=== PATIENT | female | born 1950 | race Caucasian/White ===

== ENCOUNTER 2024-08-14 10:14 | Outpatient (CLI) | payer MEDICARE, SELFPAY ==
--- NOTE | ~2024-08-14 | XR_ITS ---
XR chest 2V 08/14/2024 10:55 Indication: Cough and shortness of breath Procedure: 2 view chest Comparison: No prior studies for comparison. Findings: Lingular infiltrates may represent atelectasis or pneumonia. Heart size normal. Right lung clear. No pleural effusion, edema or pneumothorax. Impression: 1: Lingular infiltrates, atelectasis versus pneumonia. Reviewed, dictated and finalized at location A. Impression: 1: Lingular infiltrates, atelectasis versus pneumonia.
--- OUTSIDE RECORDS SUMMARY | 2024-08-14 11:28 | XMS_ITS | Data Portability ---
Author Organization [facility] Address [address] [place] [address] Care Team Providers Care Loader Operator/Ground Leader Name Role Phone MOUNIKA REGALADO Primary Care Provider RAFAELA Barnes Geochemical Manager Assessment Encounter Date Assessment Date Assessment LastModified by Organization Details LastModified Time 07/30/2023 07/30/2023 Chest x-ray echocardiogram PFT Lexiscan Cardiolite. Blood work for biochemical management of disease processes and medications continue with her medications as ordered follow-up 4 months [place] [id number] Not available 08/03/2023 21:51:55 11/26/2023 11/26/2023 Z-Gilberto for URI other medications we will continue workup for dyspnea so far negative and she is improved actually back to baseline and does not want to pursue anything else she will let me know if things change follow up with me in 4 months [email or web address] Not available 11/26/2023 21:00:07 01/08/2024 01/08/2024 screenings checklist immunizations discussed ordered where appropriate for the patient and patient agreeable all questions answered she will follow up with me at her regularly scheduled visit [email or web address] Not available 01/19/2024 14:31:35 03/31/2024 03/31/2024 blood work has been ordered healthy lifestyle care instructions for obesity continue current therapy her diagnosis discussed all questions have been answered she will follow up with me in 4 months she states that mammogram colonoscopy is up-to-date we will have to try to retrieve the report [email or web address] Not available 04/04/2024 22:54:38 06/23/2024 06/23/2024 obtain chest x-ray healthy lifestyle care instructions to help shed a few lb may otherwise continue current therapy and follow up in 4 months [email or web address] Not available 06/28/2024 20:28:57 Plan of Treatment Reminders Order Date Submit Date Provider Last Modified By Organization Details Last Modified Time Details Appointments ANY 15 2024 09:30A Jana Regalado MD Not available Not available Not available Lab CBC w/ auto diff 2023 024 [facility], [address], [address], [place], [address], 06/10/2024 17:58:47 CMP, serum or plasma 2023 024 [facility], [address], [address], [place], [address], 06/10/2024 17:58:45 lipid panel, serum 2023 024 [facility], [address], [address], [place], [address], 06/10/2024 17:58:44 lipid panel, serum 2023 024 [facility], [address], [place], [address], 08/14/2023 16:14:39 CMP, serum or plasma 2023 024 [facility], [address], [address], [place], [address], 08/14/2023 16:14:38 CBC w/ auto diff 2023 024 [facility], [address], [address], [place], [address], 08/14/2023 16:14:38 Referral None recorded. Procedures lexiscan cardiolit e stress test (PROC) 2023 024 [facility], [address], [address], [place], [address], 08/05/2023 14:11:35 Surgeries None recorded. Imaging XR, chest 2024 025 [facility] (Imaging), [address], [address], 07/21/2024 11:21:53 MAMMO, screening , bilateral 2023 024 [facility] ([facility]), [address] [place], [address], 02/27/2024 10:17:44 bone density 2023 024 [facility] ([facility]), [address] [place], [address], 02/27/2024 10:24:29 XR, chest, 2 view 2023 024 [facility] ([facility]), [address] [place], [address], 08/14/2023 15:42:04 US, echocardi ogram 2023 024 [facility], [address], [facility] [facility] [address], [place], [address], 08/21/2023 11:57:07 PFT, complete 2023 024 [facility], [address], [facility] [address], [place], [address], 08/28/2023 10:36:47 Medication Orders Zithromax Z-Gilberto 250 mg tablet 2023 024 [id number], [address] , [place], [place], [id number], 01/08/2024 10:19:38 Patient TargetsNo targets recorded. Patient Instructions Encounter Date Encounter Id Patient Instructions Last Modified By Organization Details Last Modified Time 01/08/2024 [id number] Medicare [facility] Preventive Checklist [email or web address] Not available 01/08/2024 11:02:46 03/31/2024 [id number] A healthy lifestyle: care instructions [email or web address] Not available 03/31/2024 13:15:47 06/23/2024 [id number] A healthy lifestyle: care instructions [email or web address] Not available 06/23/2024 15:22:33 Reason for Referral None Reported. Results Created Date Observation Date Name Description Value Unit Range Abnormal Flag Note LastModifiedBy Organization Detail LastModifiedTime 06/10/19 25 06/10/2024 LIPID PANEL , [place] cholesterol, total 127 mg/dL <200 normal Not Available [address], [address], 06/10/2024 17:58:44 06/10/19 25 06/10/2024 LIPID PANEL , [place] HDL cholesterol 51 mg/dL > or = 50 normal Not Available [address], [address], 06/10/2024 17:58:44 06/10/19 25 06/10/2024 LIPID PANEL , [place] triglyceride s 107 mg/dL <150 normal Not Available [address], [address], 06/10/2024 17:58:44 06/10/19 25 06/10/2024 LIPID PANEL , [place] LDL-choleste rol 57 mg/dL _(stephanie c) normal Refer ence range : <100 Yumiko able range <100 mg/dL for prima ry preve ntion ; <70 mg/dL for patie nts with CHD or diabe tic patie nts with > or = 2 CHD risk facto rs. LDL-C is now calcu lated using the Christina n-Hop kins calcu latkaterin n, which is a valid ated novel coral lorenzo r accur acy than the Fried maria ines equat ion in the estim ation of LDL-C . Christina morel SS et al. YUSUF. 2013; 310(1 9): 2061- 2068 (http ://ed ucati on.Logan garcia Joroto. com/f aq/FA Q164) Not Available [address], [address], 06/10/2024 17:58:44 06/10/19 25 06/10/2024 LIPID PANEL , [place] chol/HDLC ratio 2.5 (calc ) <5.0 normal Not Available [address], [address], 06/10/2024 17:58:44 06/10/19 25 06/10/2024 LIPID PANEL , [place] non HDL cholesterol 76 mg/dL _(stephanie c) <130 normal For patie nts with diabe seema plus 1 major ASCVD risk facto r, treat ing to a non-H DL-C goal of <100 mg/dL (LDL- C of <70 mg/dL ) is consi larond a thera peaishai c optio n. Not Available [address], [address], 06/10/2024 17:58:44 06/10/19 25 06/10/2024 COMPR EHENS MARK METAB OLIC PANEL glucose 145 mg/dL 65-139 high Non-f astin g refer ence inter josefa Not Available [address], [address], 06/10/2024 17:58:45 06/10/19 25 06/10/2024 COMPR EHENS MARK METAB OLIC PANEL urea nitrogen (BUN) 10 mg/dL 7-25 normal Not Available [address], [address], 06/10/2024 17:58:45 06/10/19 25 06/10/2024 COMPR EHENS MARK METAB OLIC PANEL creatinine 0.80 mg/dL 0.60-1 .00 normal Not Available [address], [address], 06/10/2024 17:58:45 06/10/19 25 06/10/2024 COMPR EHENS MARK METAB OLIC PANEL eGFR 78 mL/mi n/1.7 3m2 > or = 60 normal Not Available [address], [place], [address], 06/10/2024 17:58:45 06/10/19 25 06/10/2024 COMPR EHENS MARK METAB OLIC PANEL BUN/creatini ne ratio SEE NOTE: (calc ) 6-22 Not Repor jake: BUN and Creat inine are withi n refer ence range . Not Available [address], [place], [address], 06/10/2024 17:58:45 06/10/19 25 06/10/2024 COMPR EHENS MARK METAB OLIC PANEL sodium 136 mmol/ L 135-14 6 normal Not Available [address], [place], [address], 06/10/2024 17:58:45 06/10/19 25 06/10/2024 COMPR EHENS MARK METAB OLIC PANEL potassium 4.4 mmol/ L 3.5-5. 3 normal Not Available [address], [place], [address], 06/10/2024 17:58:45 06/10/19 25 06/10/2024 COMPR EHENS MARK METAB OLIC PANEL chloride 103 mmol/ L 98-110 normal Not Available [address], [address], 06/10/2024 17:58:45 06/10/19 25 06/10/2024 COMPR EHENS MARK METAB OLIC PANEL carbon dioxide 26 mmol/ L 20-32 normal Not Available [address], [address], 06/10/2024 17:58:45 06/10/19 25 06/10/2024 COMPR EHENS MARK METAB OLIC PANEL calcium 10.0 mg/dL 8.6-10 .4 normal Not Available [address], [address], 06/10/2024 17:58:45 06/10/19 25 06/10/2024 COMPR EHENS MARK METAB OLIC PANEL protein, total 6.8 g/dL 6.1-8. 1 normal Not Available [address], [address], 06/10/2024 17:58:45 06/10/19 25 06/10/2024 COMPR EHENS MARK METAB OLIC PANEL albumin 4.5 g/dL 3.6-5. 1 normal Not Available [address], [address], 06/10/2024 17:58:45 06/10/19 25 06/10/2024 COMPR EHENS MARK METAB OLIC PANEL globulin 2.3 g/dL_ (calc ) 1.9-3. 7 normal Not Available [address], [address], 06/10/2024 17:58:45 06/10/19 25 06/10/2024 COMPR EHENS MARK METAB OLIC PANEL albumin/glob ulin ratio 2.0 (calc ) 1.0-2. 5 normal Not Available [address], [address], 06/10/2024 17:58:45 06/10/19 25 06/10/2024 COMPR EHENS MARK METAB OLIC PANEL bilirubin, total 0.5 mg/dL 0.2-1. 2 normal Not Available [address], [address], 06/10/2024 17:58:45 06/10/19 25 06/10/2024 COMPR EHENS MARK METAB OLIC PANEL alkaline phosphatase 61 U/L 37-153 normal Not Available [address] [address] [place], [address], 06/10/2024 17:58:45 06/10/19 25 06/10/2024 COMPR EHENS MARK METAB OLIC PANEL AST 24 U/L 10-35 normal Not Available [address], [address], 06/10/2024 17:58:45 06/10/19 25 06/10/2024 COMPR EHENS MARK METAB OLIC PANEL ALT 20 U/L 6-29 normal Not Available [address], [address], 06/10/2024 17:58:45 06/10/19 25 06/10/2024 CBC (INCL UDES DIFF/ PLT) white blood cell count 6.2 thous and/u L 3.8-10 .8 normal Not Available [address], [address], 06/10/2024 17:58:47 06/10/19 25 06/10/2024 CBC (INCL UDES DIFF/ PLT) red blood cell count 4.72 braeden on/uL 3.80-5 .10 normal Not Available [address], [address], 06/10/2024 17:58:47 06/10/19 25 06/10/2024 CBC (INCL UDES DIFF/ PLT) hemoglobin 14.1 g/dL 11.7-1 5.5 normal Not Available [address], [address], 06/10/2024 17:58:47 06/10/19 25 06/10/2024 CBC (INCL UDES DIFF/ PLT) hematocrit 44.0 % 35.0-4 5.0 normal Not Available [address], [address], 06/10/2024 17:58:47 06/10/19 25 06/10/2024 CBC (INCL UDES DIFF/ PLT) MCV 93.2 fL 80.0-1 00.0 normal Not Available [address], [address], 06/10/2024 17:58:47 06/10/19 25 06/10/2024 CBC (INCL UDES DIFF/ PLT) MCH 29.9 pg 27.0-3 3.0 normal Not Available [address], [address], 06/10/2024 17:58:47 06/10/19 25 06/10/2024 CBC (INCL UDES DIFF/ PLT) MCHC 32.0 g/dL 32.0-3 6.0 normal For adult s, a sligh t decre ase in the calcu lated MCHC value (in the range of 30 to 32 g/dL) is most likel y not clini lyndsey signi fican t; zahraa er, it shoul d be inter prete d with cauti on in corre latio n with other red cell hermes eters and the patie nt's clini stephanie condi tion. Not Available [address], [address], 06/10/2024 17:58:47 06/10/1906/10/2024 CBC (INCL UDES DIFF/ PLT) RDW 11.9 % 11.0-1 5.0 normal Not Available [address], [address], 06/10/2024 17:58:47 06/10/19 25 06/10/2024 CBC (INCL UDES DIFF/ PLT) platelet count 219 thous and/u L 140-40 0 normal Not Available [address], [address], 06/10/2024 17:58:47 06/10/19 25 06/10/2024 CBC (INCL UDES DIFF/ PLT) MPV 10.7 fL 7.5-12 .5 normal Not Available [address], [address], 06/10/2024 17:58:47 06/10/19 25 06/10/2024 CBC (INCL UDES DIFF/ PLT) absolute neutrophils 4061 cells /uL 1500-7 800 normal Not Available [address], [address], 06/10/2024 17:58:47 06/10/19 25 06/10/2024 CBC (INCL UDES DIFF/ PLT) absolute lymphocytes 1432 cells /uL 850-39 00 normal Not Available [address], [address], 06/10/2024 17:58:47 06/10/19 25 06/10/2024 CBC (INCL UDES DIFF/ PLT) absolute monocytes 546 cells /uL 200-95 0 normal Not Available [address], [address], 06/10/2024 17:58:47 06/10/19 25 06/10/2024 CBC (INCL UDES DIFF/ PLT) absolute eosinophils 112 cells /uL 15-500 normal Not Available [address], [address], 06/10/2024 17:58:47 06/10/19 25 06/10/2024 CBC (INCL UDES DIFF/ PLT) absolute basophils 50 cells /uL 0-200 normal Not Available [address], [address], 06/10/2024 17:58:47 06/10/19 25 06/10/2024 CBC (INCL UDES DIFF/ PLT) neutrophils 65.5 % normal Not Available [address], [address], 06/10/2024 17:58:47 06/10/19 25 06/10/2024 CBC (INCL UDES DIFF/ PLT) lymphocytes 23.1 % normal Not Available [address], [address], 06/10/2024 17:58:47 06/10/19 25 06/10/2024 CBC (INCL UDES DIFF/ PLT) monocytes 8.8 % normal Not Available [facility] [address], [address], 06/10/2024 17:58:47 06/10/19 25 06/10/2024 CBC (INCL UDES DIFF/ PLT) eosinophils 1.8 % normal Not Available [facility] [address], [address], 06/10/2024 17:58:47 06/10/19 25 06/10/2024 CBC (INCL UDES DIFF/ PLT) basophils 0.8 % normal Not Available [facility] [address], [address], 06/10/2024 17:58:47 06/16/1906/16/2024 HEMOG LOBIN A1C hemoglobin A1C 5.8 %_of_ total _HGB <5.7 high For someo ne witho ut known diabe seema, a hemog lobin A1c value betwe en 5.7% and 6.4% is consi stent with predi abete s and shoul d be confi rmed with a follo w-up test. For someo ne with known diabe seema, a value <7% indic ates that their diabe seema is well contr olled . A1c targe ts shoul d be indiv idual ized based on durat ion of diabe seema, age, comor bid condi tions , and other consi derat ions. This assay resul t is consi stent with an incre ased risk of diabe seema. Curre ntly, no conse nsus exist s regar ding use of hemog lobin A1c for diagn osis of diabe seema for child kamlesh. Not Available [facility] [address], [place], [address], 06/16/2024 22:54:08 08/14/19 24 08/14/2023 XR, chest , 2 view No observ ation record ed. [email or web address] [address] [place], [address], 08/21/2023 09:21:17 08/21/19 24 08/20/2023 US, echoc ardio gram No observ ation record ed. [facility] [address], [place], [address], 08/26/2023 16:44:05 08/28/19 24 08/28/2023 PFT, compl ete No observ ation record ed. [facility] [address], [place], [address], 09/04/2023 13:22:12 09/23/19 24 09/23/2023 NM, myoca rdial perfu eva scan No observ ation record ed. [facility] [address], [place], [address], 09/27/2023 15:38:28 01/08/20 24 06/23/2021 colon oscop y proce dure (PROC ) No observ ation record ed. Not Available 2023 10:58:43 02/27/2002/27/2024 MAMMO , scree delilah, bilat eral No observ ation record ed. [facility] [address] [place], [address], 03/11/2024 13:04:48 02/27/20 24 02/27/2024 bone densi ty No observ ation record ed. [facility] [address] [place], [address], 03/11/2024 13:04:49 Result Notes None recorded. Problems Name Problem SNOMED Code Status Onset Date Resolution Date Notes Provider Name and Address Organization Details Recorded Time Dyspnea on exertion 52715598 Active 2023 HEIKE Gibbs, [place] - [facility] 4 14:12:33 Urinary tract infectious disease 29286478 Active 2023 Dallas Figueroa [place] null, [place] [facility] 4 11:42:53 Obesity 493077555 Active 2023 Dallas Figueroa [place], [place] [facility] 4 11:42:53 Rheumatoid arthritis 52593947 Active 2023 HEIKE [place], [place] [facility] 4 11:42:57 Gastroesophage al reflux disease without esophagitis 939878107 Active 2023 Dallas Figueroa [place], [place] [facility] 4 11:42:58 Anxiety 96825816 Active 2023 Dallas Figueroa [place], [place] [facility] 4 11:43:00 Hyperlipidemia 74410851 Active 2023 HEIKE Gibbs, [place] [facility] 4 11:43:09 Problem Notes None recorded. Procedures Surgical History Date Name Laterality Status Provider Name and Address Organization Details Recorded Time Knee Surgery completed Madeline Bueno MA [facility] 07/30/2023 11:25:01 Tonsillectomy completed Madeline Bueno MA [facility] 07/30/2023 11:25:10 partial hysterectomy completed Madeline Bueno MA [facility] 07/30/2023 11:25:28 Imaging Results Imaging Date Name Status LastModified by Organization Details LastModified Time 08/14/2023 XR, chest, 2 view completed [facility] [address] [place], [address], 08/21/2023 09:21:17 08/20/2023 US, echocardiogram completed [facility] [address], [place], [address], 08/26/2023 16:44:05 08/28/2023 PFT, complete completed [facility] [address], [place], [address], 09/04/2023 13:22:12 09/23/2023 NM, myocardial perfusion scan completed [facility] [address], [place], [address], 09/27/2023 15:38:28 06/23/2021 colonoscopy procedure (PROC) completed [facility] Information not available 01/08/2024 10:58:43 02/27/2024 MAMMO, screening, bilateral completed [facility] [address] [place], [address], 03/11/2024 13:04:48 02/27/2024 bone density completed [facility] [address] [place], [address], 03/11/2024 13:04:49 Procedure Notes None recorded. Medical Equipment None Reported. Allergies No known drug allergies Medications Name Sig Start Date Stop Date Status Note LastModified by Organization Details LastModified Time carisoprodol 350 mg tablet TAKE 2 TABLETS BY MOUTH EVERY DAY AT BEDTIME 07/29 completed Not Available Not Available Not Available tizanidine 2 mg tablet TAKE 1 TO 2 TABLETS BY MOUTH DAILY AT BEDTIME active Not Available Not Available No t Available atorvastatin 10 mg tablet TAKE 1 TABLET BY MOUTH EVERY DAY 2024 active Not Available Not Available Not Avai lable azithromycin 250 mg tablet TAKE 2 TABLETS BY MOUTH FOR 1 DAY THEN TAKE 1 TABLET BY MOUTH DAILY FOR 4 DAYS 01/07 completed Not Available Not Available Not Available mycophenolat e mofetil 500 mg tablet Take 2 tablets twice a day by oral route for 90 days. active Not Available Not Available No t Available lansoprazole 15 mg capsule,sandra yed release Take 1 capsule every day by oral route. active Not Available Not Available No t Available sertraline 25 mg tablet TAKE 1 TABLET BY MOUTH EVERY DAY 2024 active Not Available Not Available Not Avai lable hydroxychlor oquine 200 mg tablet TAKE 2 TABLETS BY MOUTH ONCE DAILY active Not Available Not Available No t Available Vitamin D3 25 mcg (1,000 unit) capsule Take 1 capsule every day by oral route. active Not Available Not Available No t Available bupropion HCl XL 300 mg 24 hr tablet, extended release Take 1 tablet every day by oral route for 30 days. active Not Available Not Available No t Available melatonin 5 mg capsule Take 1 capsule every day by oral route at bedtime. active Not Available Not Available No t Available Caltrate active Not Available Not Avai lable Not Available Fish Oil 1,200 mg (144 mg-216 mg) capsule Take 1 capsule every day by oral route. 06/23 completed Not Available Not Available Not Available Vitals Date Recorded Body weight Body mass index (BMI) Body height Heart rate Oxygen saturation Oxygen saturation in Arterial blood by Pulse oximetry Systolic blood pressure Diastolic blood pressure Provider Name and Address Organization Details Last Updated DateTime 4 55483.6 7 g 28.9 kg/m2 152.4 cm 80 /min 99 % 99 % 111 mm[Hg] 72 mm[Hg] Madeline Bueno MA [facility] 4 11:28:16 Date Recorded Body height Body mass index (BMI) Body weight Heart rate Oxygen saturation Oxygen saturation in Arterial blood by Pulse oximetry Systolic blood pressure Diastolic blood pressure Provider Name and Address Organization Details Last Updated DateTime 4 152.4 cm 29.1 kg/m2 37880.2 6 g 81 /min 99 % 99 % 128 mm[Hg] 62 mm[Hg] Candice Ramos MA [facility] 4 10:37:28 Date Recorded Body height Body mass index (BMI) Body weight Heart rate Oxygen saturation Oxygen saturation in Arterial blood by Pulse oximetry Systolic blood pressure Diastolic blood pressure Provider Name and Address Organization Details Last Updated DateTime 4 152.4 cm 29.8 kg/m2 38991.9 1 g 79 /min 97 % 97 % 124 mm[Hg] 70 mm[Hg] Madeline Bueno MA [facility] 4 10:13:37 Date Recorded Pain severity - 0-10 verbal numeric rating [Score] - Reported Provider Name and Address Organization Details Last Updated DateTime 01/08/2024 0 [facility] 01/08/2024 10:18:37 Date Recorded Body height Body mass index (BMI) Body weight Heart rate Oxygen saturation Oxygen saturation in Arterial blood by Pulse oximetry Systolic blood pressure Diastolic blood pressure Provider Name and Address Organization Details Last Updated DateTime 4 149.86 cm 31.6 kg/m2 97997.2 1 g 86 /min 99 % 99 % 128 mm[Hg] 78 mm[Hg] Rachel Muhammad MA [facility] 4 10:22:14 Date Recorded Body height Body mass index (BMI) Body weight Heart rate Oxygen saturation Oxygen saturation in Arterial blood by Pulse oximetry Systolic blood pressure Diastolic blood pressure Provider Name and Address Organization Details Last Updated DateTime 5 149.86 cm 30.7 kg/m2 85255.0 4 g 77 /min 97 % 97 % 104 mm[Hg] 68 mm[Hg] June Rivas HEIKE [facility] 5 10:25:47 Social History Question Answer Notes LastModified by Organizat ion Details LastModified Time Tobacco Smoking Status Former Smoker Quit about 30 years ago - didn't smoke regularly, only when nervous Alesha Yan benny [facility] 01/08/2024 10:24:02 Do You Have An Advance Directive? Yes Information not available 07/30/2023 What Is Your Level Of Alcohol Consumption? None Information not available 07/30/2023 Are You Blind Or Do You Have Difficulty Seeing? No Information not available 07/30/2023 What Is Your Level Of Caffeine Consumption? Moderate 1 Cup Of Coffee & 1 Diet Pepsi Daily Information not available 01/08/2024 In The 14 Days Before Symptom Onset, Have You Had Close Contact With A Laboratory-confir med COVID-19 While That Case Was Ill? No Information not available 11/26/2023 In The 14 Days Before Symptom Onset, Have You Had Close Contact With A Person Who Is Under Investigation For COVID-19 While That Person Was Ill? No Information not available 11/26/2023 Have You Been To An Area Known To Be High Risk For COVID-19? No Information not available 11/26/2023 Are You Currently Employed? No Information not available 11/26/2023 Are You Deaf Or Do You Have Serious Difficulty Hearing? No Information not available 07/30/2023 What Type Of Diet Are You Following? REGULAR Information not available 07/30/2023 What Is The Highest Grade Or Level Of School You Have Completed Or The Highest Degree You Have Received? [id number] Information not available 01/08/2024 Are There Any Guns Present In Your Home? No Information not available 07/30/2023 In The Past 7 Days, How Much Pain Have You [place]? None Information not available 01/08/2024 In General, Would You Say You Health Is: Good Information not available 01/08/2024 How Would You Describe The Condition Of Your Mouth And Teeth- Including False Teeth Or Dentures? Good Information not available 01/08/2024 Each Night, How Many Hours Of Sleep Do You Get? 5 Information no t available 01/08/2024 Has Anyone Ever Told You That You Snore? Yes Information not available 01/08/2024 In The Past 7 Days, How Often Have You [place] Sleepy In The Daytime? Always Information not available 01/08/2024 # Alcohol Drinks Per Week 0 Information not available 01/08/2024 What Was The Date Of Your Most Recent Tobacco Screening? 06/23/2024 Information not available 06/23/2024 What Is Your Relationship Status? Information not available 07/30/2023 Do You Use Your Seat Belt Or Car Seat Routinely? Yes Information not available 07/30/2023 Do You Have Smoke And Carbon Monoxide Detectors In Your Home? Yes Information not available 07/30/2023 Do You Feel Stressed (tense, Restless, Nervous, Or Anxious, Or Unable To Sleep At Night)? [id number] Information not available 01/08/2024 Do You Use Any Illicit Or Recreational Drugs? No Information not available 07/30/2023 Do You Use Sunscreen Routinely? No Information not available 07/30/2023 Has Tobacco Cessation Counseling Been Provided? No Information not available 06/23/2024 Do You Or Have You Ever Used Any Other Forms Of Tobacco Or Nicotine? No Information not available 07/30/2023 Sex: Female Functional Status Question Answer Note LastModified by Organization D etails LastModified Time Are you able to care for yourself? Yes Information n ot available 07/30/2023 What is your exercise level? None Information not available 07/30/2023 Mental Status None recorded. Family History Relationship Description Onset Age of this Age Resolved Age Notes LastModified by Organization Details LastModified Time Father Myocardial infarction bandersonma Not available 04/2024 11:23:52 Paternal Uncle Myocardial infarction bandersonma Not available 04/2024 11:23:52 Medical History Condition Response Coronary Artery Disease N Other N High Blood Pressure N Atrial Fibrillation N Thyroid Problems N Kidney or Bladder Problems N Depression N COPD N Blood Clots N GI Problems N Have you had a mammogram in the last yea r? N Skin Problems N Anemia N Heart Attack ([place]) N Anxiety Disorder N Diabetes N Muscle, Joint, or Bone Problems N Seizures/Epilepsy N Have you had a colonoscopy in the last 1 0 years? Y Acid Reflux (GERD) Y Cancer N Stroke N Asthma N Allergies N Have you had a PSA blood test in the las t year? N High Cholesterol Y Hepatitis N Liver Disease N Headaches N Osteoporosis N Heart Failure N Gynecological History Statement/Question Response If Post Menopausal, Age at Menopause 53 Obstetrics History GPAL:G 1 P 1 0 0 1 Type Value Full Term 1 Living 1 Total 1 Immunizations Vaccine Type Date Status Note Provider Nam e and Address Organization Details Recorded Time Influenza, high-dose, quadrivalent, PF 3 completed A[place]ha [place], [place] - [facility] 01/08/2024 10:12:24 Influenza, high-dose, quadrivalent, PF 9 [place] [facility] 01/08/2024 10:12:24 Influenza, adjuvanted, quadrivalent, PF 2 [place] [facility] 01/08/2024 10:12:24 Influenza, adjuvanted, quadrivalent, PF 1 [place] [facility] 01/08/2024 10:12:24 COVID-19, mRNA, LNP-S, PF, 30 mcg/0.3 mL dose 1 completed Ales[place] [facility] 01/08/2024 10:12:24 COVID-19, mRNA, LNP-S, PF, 30 mcg/0.3 mL dose 1 completed [place] [facility] 01/08/2024 10:12:24 COVID-19, mRNA, LNP-S, PF, 30 mcg/0.3 mL dose 1 completed [place] [facility] 01/08/2024 10:12:24 pneumococcal polysaccharide PPV23 2 completed [place] [facility] 01/08/2024 10:12:24 Pneumococcal conjugate PCV 13 1 completed [place] [facility] 01/08/2024 10:12:24 Influenza, split virus, quadrivalent, PF 0 completed [place] [facility] 01/08/2024 10:12:24 Past Encounters Encounter ID Performer Location Encounter Start Date Encounter Closed Date Diagnosis/Indication Diagnosis SNOMED-CT Code Diagnosis ICD10 Code Diagnosis Note [id number] Mounika Regalado MD [facility] (Adult Med) [address] [place] [address] [phone] 0 07/30/2023 11:02:13 07/30/2023 12:08:40 Dyspnea on exertion 68180836 R06.09 Hyperlipidemia 16818297 E78.5 Rheumatoid arthritis 698 08668 M06.9 Anxiety 97986068 F41.9 Gastroesop hageal reflux disease without esophagitis 626718644 K21.9 Chronic low back pain 27 8145480 M54.50 [id number] MD [facility] (Adult Med) [address] [place] [address] [phone] 11/26/2023 10:16:39 11/26/2023 11:43:52 Urinary tract infectious disease 10424749 N39.0 Hyperlipidemia 93711581 E78.5 Rheumatoid arthritis 698 34943 M06.9 Gastroesop hageal reflux disease without esophagitis 023973349 K21.9 Anxiety 07319339 F41.9 [id number] Mounika Regalado MD [facility] (Adult Med) [address] [place] [address] [phone] 0 01/08/2024 10:01:49 01/08/2024 10:51:40 Adult health examination 901456225 Z00.00 Health Risk Assessment collected and reviewed Screening mammography 24 505312 Z12.31 Postmenopausal state 764 16243 Z78.0 [id number] Mounika Regalado MD [facility] (Adult Med) [address] [place] [address] [phone] 0 03/31/2024 10:14:54 03/31/2024 11:44:28 Body mass index 30+ - obesity 537047097 Z68.31 BMI 31.6 Obesity 106666648 E66.9 Hyperlipidemia 74421350 E78.5 Rheumatoid arthritis 698 84060 M06.9 Gastroesop hageal reflux disease without esophagitis 520702558 K21.9 Long-term drug therapy 605319406 Z79.891 Anxiety 54438860 F41.9 [id number] Mounika Regalado MD [facility] (Adult Med) [address] [place] [address] [phone] 0 06/23/2024 10:08:52 06/23/2024 10:56:00 Body mass index 30+ - obesity 753546008 Z68.31 BMI 31.6 Obesity 491359291 E66.9 Cough 31590327 R05.9 Hyperlipidemia 74734281 E78.5 Gastroesop hageal reflux disease without esophagitis 576182117 K21.9 Rheumatoid arthritis 698 60010 M06.9 Anxiety 40467259 F41.9 Health Concerns Section Related Observation LastModified by Organization Detai ls LastModified Time None Recorded Concern Status LastModified by Organization Details LastModified Time None Recorded Advance Directives Directive Y: Payers Encounter Date Sequence Insurance Name Policy Number Policy Romeo Covered Member ID Romeo Member ID Guarantor Name 07/30/2023 1 [facility] (MEDICARE REPLACEMENT/A DVANTAGE - HMO) [id number] Daisy Joseph [id number] Daisy Joseph 11/26/2023 1 [facility] (MEDICARE REPLACEMENT/A DVANTAGE - HMO) [id number] Daisy Joseph [id number] Daisy Bowmanmmitt 01/08/2024 1 [facility] (MEDICARE REPLACEMENT/A DVANTAGE - HMO) [id number] Daisy Zaman Brummitt [id number] Daisy Bowmanmmitt 03/31/2024 1 [facility] (MEDICARE REPLACEMENT/A DVANTAGE - HMO) [id number] Daisy Zaman Brummitt [id number] Daisy Bowmanmmitt 06/23/2024 1 [facility] (MEDICARE REPLACEMENT/A DVANTAGE - HMO) [id number] Daisy Zaman Brummitt [id number] Daisy Bowmanmmrogers Notes Date Note Type Note Provider Name and Address Organization Details Recorded Time 07/30/2023 text/html Has been having some [place] for several months without any chest pain. Hyperlipidemia taking atorvastatin try to watch a low-fat diet. Rheumatoid arthritis has been stable on current therapy anxiety doing well on sertraline without SI or HI. GERD has been doing okay no nausea no vomiting her chronic back pain has been stable Mounika Regalado MD Attn: [address] [place], [address], [facility] 08/03/2023 21:52:14 11/26/2023 text/html for follow up of medical problems her breathing is better PFTs nothing specific echo good test negative Hyperlipidemia taking atorvastatin try to watch a low-fat diet. Rheumatoid arthritis has been stable on current therapy anxiety doing well on sertraline without SI or HI. GERD has been doing okay no nausea no vomiting her chronic back pain has been stable. She has had upper respiratory infection for a week or 2 getting worse Mounika Regalado MD Attn: [address] [facility], [place], [address], [facility] 11/26/2023 21:00:25 01/08/2024 text/html MAW 2Reported bypatient.Diet and Nutrition:healthy diet Fracture Risk:no history of fractures; no sudden unexplained fractures Concentration and Memory:no decreased concentrating ability; no memory lapses or loss; does not forget words Speech/Motor difficulties:no speech difficulties; no difficulty expressing formulated concepts; no difficulty with fine manipulative tasks; no difficulty writing/copying; no slowed reaction time; does not knock things over when trying to pick them up Hearing:no loss of hearing Vision:worse both distance and near(contacts, dry eyes) Activities of Daily Living:able to bathe with limited or no assistance; able to contol urination and bowels; able to dress with limited or no assistance; able to feed self with limited or no assistance; able to get out of chair or bed with limited or no assistance; able to groom with limited or no assistance; able to toilet with limited or no assistance Instrumental Activities of Daily Living:able to do house work with limited or no assistance; able to grocery shop with limited or no assistance; able to manage medications with limited or no assistance; able to manage money with limited or no assistance; able to prepare meals with limited or no assistance; able to use the phone with limited or no assistance Falls Risk Assessment:no frequent falls while walking; no fall in the past year; no fall since last visit; no dizziness/vertigo Home Safety:reviewed sun protection; no unsafe bennie hazzards; no unsafe stairs; working smoke/CO detectors; practicing 'safer sex'; no fire arms; has hand bars in the bathroom/shower; good lighting in the home Mounika Regalado MD Attn: [address] [place], [address], [facility] 01/19/2024 14:31:48 03/31/2024 text/html GERD no nausea n o vomiting anxiety doing fine on current medical regimen without any side effects rheumatoid arthritis stable she is not having any side effects from medication GERD she is managing that conservatively Mounika Regalado MD Attn: [address] [place], [address], [facility] 04/04/2024 22:54:58 06/23/2024 text/html rheumatoid arthr itis seems to be doing fine GERD no nausea or vomiting anxiety has been stable she has had no problems trying to follow low-fat diets had a cough for about 6 weeks that has been nonproductive without fever chills has been no hemoptysis or chest pain Mounika Regalado MD Attn: [address] [place], [address], [facility] 06/28/2024 20:29:18 OBGyn Episode No OBEpisode recorded.
--- OUTSIDE RECORDS SUMMARY | 2024-08-14 11:28 | XMS_ITS | CONTINUITY OF CARE DOCUMENT ---
Author Name zenonemelina, keren Address Unknown Organization [facility] Address [address] [place] [address] Phone [phone] Care Team Providers Care Stone Rigger Name Role Phone Mike CASTRO, Eli Unavailable MOUNIKA AVILA MD Unavailable PROBLEMS Condition Status Date Provider Notes Dyspnea on exertion active Josiah Bueno Palpitations active Ricki Arceo INSURANCE PROVIDERS Payer name Policy type / Coverage type [place] [employer] ID AARP MEDICARE ADVANTAGE HMO-POS HMO [id number] TREATMENT PLAN Date Name Stress Regadenoson Complete Echo HISTORY OF PROCEDURES Procedure Date Procedure Name Provider Procedure Notes S tatus FVC / MVV - 36544 Eli Mckeon MD co mpleted BLOOD COUNT HEMOGLOBIN Eli Mckeon MD completed FRC - 82375 Eli Mckeon MD complete d SpO2 w/o 6min walk/titration Eli Mckeon MD completed DLCO - 36762 Eli Mckeon MD complet ed Event Monitor Eli joseph
--- OUTSIDE RECORDS SUMMARY | 2024-08-14 11:28 | XMS_ITS | Data Portability ---
Author Organization [place] - [facility] [employer], Main Office Address [address] [place] [address] Assessment Encounter Date Assessment Date Assessment LastModified by Organization Details LastModified Time 11/16/2022 11/16/2022 Get the recommended adrenal CT upper lower endoscopy results have been reviewed follow-up with me in 6-8 week [email or web address] Not available 11/17/2022 21:52:37 03/04/2023 03/04/2023 X-ray the neck she will see me in 4 months will continue other therapy [email or web address] Not available 03/04/2023 14:08:43 Plan of Treatment Reminders Order Date Submit Date Provider Last Modified By Organization Details Last Modified Time Details Appointments None recorded. Lab None recorded. Referral None recorded. Procedures None recorded. Surgeries None recorded. Imaging XR, cervical spine 2022 023 [facility] ([facility]), [address] [place], [address], 09:20:20 Medication Orders None recorded. Patient TargetsNo targets recorded. Patient InstructionsNo instructions recorded. Reason for Referral None Reported. Results Created Date Observation Date Name Description Value Unit Range Abnormal Flag Note LastModifiedBy Organization Detail LastModifiedTime 01/16/20 22 01/15/2022 COMPR EHENS MARK METAB OLIC PANEL carbon dioxide 23 mmol/ L 22-30 Not Available [facility] (Lab) [address] [place], [address], 01/15/2022 20:24:46 01/16/20 22 01/15/2022 COMPR EHENS MARK METAB OLIC PANEL sodium 138 mmol/ L 137-14 5 Not Available [facility] (Lab) [address] [place], [address], 01/15/2022 20:24:46 01/16/20 22 01/15/2022 COMPR EHENS MARK METAB OLIC PANEL potassium 4.8 mmol/ L 3.5-5. 1 Not Available [facility] (Lab) [address] [place], [address], 01/15/2022 20:24:46 01/16/20 22 01/15/2022 COMPR EHENS MARK METAB OLIC PANEL chloride 105 mmol/ L 98-107 Not Available [facility] (Lab) [address] [facility] [place] [place], [address], 01/15/2022 20:24:46 01/16/20 22 01/15/2022 COMPR EHENS MARK METAB OLIC PANEL anion gap 14.8 mmol/ L 14-22 Not Available [facility] (Lab) [address] [place], [address], 01/15/2022 20:24:46 01/16/20 22 01/15/2022 COMPR EHENS MARK METAB OLIC PANEL glucose 97 mg/dL 70-99 Not Available [facility] (Lab) [address] [place], [address], 01/15/2022 20:24:46 01/16/20 22 01/15/2022 COMPR EHENS MARK METAB OLIC PANEL BUN 18 mg/dL 8-19 Not Available [facility] (Lab) [address] [place], [address], 01/15/2022 20:24:46 01/16/20 22 01/15/2022 COMPR EHENS MARK METAB OLIC PANEL creatinine 0.80 mg/dL 0.66-1 .25 Not Available [facility] (Lab) [address] [place], [address], 01/15/2022 20:24:46 01/16/20 22 01/15/2022 COMPR EHENS MARK METAB OLIC PANEL GFR >60 Refer ence Range : [place] ge GFR Healt hy Adult : >60 mL/mi n/1.7 3 m2 Chron ic Kidne y Disea se: 15-60 mL/mi n/1.7 3 m2 Kidne y Failu re: <15/m L/min /1.73 m2 www.n iddk. nih.g ov The MDRD study equat ion has not been valid ated in child kamlesh <18 years of age; pregn ant women ; the elder ly >85 years of age; or in some racia l or ethni c subgr oups, such as Hispa nics. Outsi de the valid ated hermes eters , estim ated GFR is less accur ate, requi ring clini stephanie judgm ent on a case- by-ca se basis . Clini stephanie inter preta tion for other races and ages must be made by the clini jojo. The MDRD study equat ion has not been valid ated for the evalu ation of serum creat inine relat ed to nutri mami l statu s or medic ation usage . For perso ns <18 years of age, a pedia tric GFR calcu lator is avail able on the [facility] websi te: https :[email or web address] [email or web address] [email or web address] michael/pr ofess ional s/kdo qi/gf r_cal culat or Not Available [facility] (Lab) [address] [place], [address], 01/15/2022 20:24:46 01/16/20 22 01/15/2022 COMPR EHENS MARK METAB OLIC PANEL alkaline phosphatase 72 U/L 38-126 Not Available [facility] (Lab) [address] [place], [address], 01/15/2022 20:24:46 01/16/20 22 01/15/2022 COMPR EHENS MARK METAB OLIC PANEL alanine aminotransfe rase 28 U/L 0-35 Not Available [facility] (Lab) [address] [place], [address], 01/15/2022 20:24:46 01/16/20 22 01/15/2022 COMPR EHENS MARK METAB OLIC PANEL aspartate aminotransfe rase 35 U/L 15-37 Not Available [facility] (Lab) [address] [place], [address], 01/15/2022 20:24:46 01/16/20 22 01/15/2022 COMPR EHENS MARK METAB OLIC PANEL bilirubin, total 0.40 mg/dL 0.20-1 .30 Not Available [facility] (Lab) [address] [place], [address], 01/15/2022 20:24:46 01/16/20 22 01/15/2022 COMPR EHENS MARK METAB OLIC PANEL calcium 9.8 mg/dL 8.4-10 .2 Not Available [facility] (Lab) [address] [place], [address], 01/15/2022 20:24:46 01/16/20 22 01/15/2022 COMPR EHENS MARK METAB OLIC PANEL total protein 7.5 g/dL 6.3-8. 2 Not Available [facility] (Lab) [address] [place], [address], 01/15/2022 20:24:46 01/16/20 22 01/15/2022 COMPR EHENS MARK METAB OLIC PANEL albumin 4.5 g/dL 3.0-4. 4 high Not Available [facility] (Lab) [address] [place], [address], 01/15/2022 20:24:46 01/16/20 22 01/15/2022 COMPR EHENS MARK METAB OLIC PANEL globulin 3.0 g/dL 2.6-4. 2 Not Available [facility] (Lab) [address] [place], [address], 01/15/2022 20:24:46 01/16/20 22 01/15/2022 COMPR EHENS MARK METAB OLIC PANEL A/G ratio 1.5 ratio 1.0-2. 0 Not Available [facility] (Lab) [address] [place], [address], 01/15/2022 20:24:46 01/16/20 22 01/15/2022 LIPID PANEL LDL cholesterol, calculated 123 mg/dL 0-130 NIH MIKI NSUS REPOR T RECOM MENDA TIONS FOR LDL: ADULT CHILD LOW RISK <130 <110 (OPTI MAL LDL) <100 ----- BORDE RLINE : 130-1 59 ----- HIGH RISK: >160 >130 A TRIGL YCERI DE RESUL T >400 INVAL IDATE S THE CALCU LATIO N FOR LDL FRACT IONAT ION - THE LDL RESUL T WILL NOT BE REPOR BABITA. Not Available [facility] (Lab) [address] [place], [address], 01/15/2022 18:19:41 01/16/20 22 01/15/2022 LIPID PANEL cholesterol 197 mg/dL 140-19 9 NIH MIKI NSUS RECOM MENDA TION FOR CHRISTOPHER STERO L: ADULT CHILD LOW RISK: <200 <170 BORDE RLINE : <200- 239 ----- HIGH RISK: >240 >200 Not Available [facility] (Lab) [address] [place], [address], 01/15/2022 18:19:41 01/16/20 22 01/15/2022 LIPID PANEL triglyceride s 134 mg/dL 0-150 NIH MIKI NSUS REPOR T RECOM MENDA TION FOR TRIGL YCERI NORMA: ADULT CHILD LOW RISK: <150 ----- BODER LINE: 150-1 99 ----- HIGH RISK: >200 ----- Not Available [facility] (Lab) [address] [place], [address], 01/15/2022 18:19:41 01/16/20 22 01/15/2022 LIPID PANEL HDL cholesterol 47 mg/dL 40- Not Available [facility] (Lab) [address] [place], [address], 01/15/2022 18:19:41 01/16/20 22 01/15/2022 CBC/C OMPLE TE BLD COUNT W/DIF F lymphocytes 33.3 % 16.0-4 7.0 Not Available [facility] (Lab) [address] [place], [address], 01/15/2022 17:04:14 01/16/20 22 01/15/2022 CBC/C OMPLE TE BLD COUNT W/DIF F white blood cells 5.8 x10'3 /uL 4.2-10 .8 Not Available [facility] (Lab) [address] [place], [address], 01/15/2022 17:04:14 01/16/20 22 01/15/2022 CBC/C OMPLE TE BLD COUNT W/DIF F red blood cells 4.64 x10'6 /uL 3.80-5 .20 Not Available [facility] (Lab) [address] [place], [address], 01/15/2022 17:04:14 01/16/20 22 01/15/2022 CBC/C OMPLE TE BLD COUNT W/DIF F hemoglobin 14.1 g/dL 12.0-1 5.6 Not Available [facility] (Lab) [address] [place], [address], 01/15/2022 17:04:14 01/16/20 22 01/15/2022 CBC/C OMPLE TE BLD COUNT W/DIF F hematocrit 44.0 % 35.7-4 5.7 Not Available [facility] (Lab) [address] [place], [address], 01/15/2022 17:04:14 01/16/20 22 01/15/2022 CBC/C OMPLE TE BLD COUNT W/DIF F mean red cell volume 94.8 fL 82.0-9 9.0 Not Available [facility] (Lab) [address] [place], [address], 01/15/2022 17:04:14 01/16/20 22 01/15/2022 CBC/C OMPLE TE BLD COUNT W/DIF F mean red cell hemoglobin 30.4 pg 27.0-3 3.0 Not Available [facility] (Lab) [address] [place], [address], 01/15/2022 17:04:14 01/16/20 22 01/15/2022 CBC/C OMPLE TE BLD COUNT W/DIF F mean RBC HGB concentratio n 32.0 g/dL 31.0-3 6.0 Not Available [facility] (Lab) [address] [place], [address], 01/15/2022 17:04:14 01/16/20 22 01/15/2022 CBC/C OMPLE TE BLD COUNT W/DIF F red cell distribution width 12.9 % 11.8-1 5.5 Not Available [facility] (Lab) [address] [place], [address], 01/15/2022 17:04:14 01/16/20 22 01/15/2022 CBC/C OMPLE TE BLD COUNT W/DIF F platelets 224 x10'3 /uL 150-40 0 Not Available [facility] (Lab) [address] [place], [address], 01/15/2022 17:04:14 01/16/20 22 01/15/2022 CBC/C OMPLE TE BLD COUNT W/DIF F mean platelet volume 10.2 fL 9.0-12 .4 Not Available [facility] (Lab) [address] [place], [address], 01/15/2022 17:04:14 01/16/20 22 01/15/2022 CBC/C OMPLE TE BLD COUNT W/DIF F neutrophils 54.5 % 39.0-7 2.0 Not Available [facility] (Lab) [address] [place], [address], 01/15/2022 17:04:14 01/16/20 22 01/15/2022 CBC/C OMPLE TE BLD COUNT W/DIF F monocytes 10.2 % 5.0-12 .0 Not Available [facility] (Lab) [address] [place], [address], 01/15/2022 17:04:14 01/16/20 22 01/15/2022 CBC/C OMPLE TE BLD COUNT W/DIF F neutrophils, absolute count 3.14 x10'3 /uL 1.5-8. 0 Not Available [facility] (Lab) [address] [place], [address], 01/15/2022 17:04:14 01/16/20 22 01/15/2022 CBC/C OMPLE TE BLD COUNT W/DIF F eosinophils 1.4 % 1.0-7. 0 Not Available [facility] (Lab) [address] [place], [address], 01/15/2022 17:04:14 01/16/20 22 01/15/2022 CBC/C OMPLE TE BLD COUNT W/DIF F basophils 0.3 % 0.0-2. 0 Not Available [facility] (Lab) [address] [place], [address], 01/15/2022 17:04:14 01/16/20 22 01/15/2022 CBC/C OMPLE TE BLD COUNT W/DIF F immature granulocytes 0.3 % 0.00-0 .50 Not Available [facility] (Lab) [address] [place], [address], 01/15/2022 17:04:14 01/16/20 22 01/15/2022 CBC/C OMPLE TE BLD COUNT W/DIF F lymphocytes, absolute count 1.92 x10'3 /uL 1.07-3 .43 Not Available [facility] (Lab) [address] [facility] [place] [place], [address], 01/15/2022 17:04:14 01/16/20 22 01/15/2022 CBC/C OMPLE TE BLD COUNT W/DIF F monocytes, absolute count 0.59 x10'3 /uL 0.29-0 .99 Not Available [facility] (Lab) [address] [place], [address], 01/15/2022 17:04:14 01/16/20 22 01/15/2022 CBC/C OMPLE TE BLD COUNT W/DIF F eosinophils, absolute count 0.08 x10'3 /uL 0.02-0 .53 Not Available [facility] (Lab) [address] [place], [address], 01/15/2022 17:04:14 01/16/20 22 01/15/2022 CBC/C OMPLE TE BLD COUNT W/DIF F basophils, absolute count 0.02 x10'3 /uL 0.01-0 .08 Not Available [facility] (Lab) [address] [place], [address], 01/15/2022 17:04:14 01/16/20 22 01/15/2022 CBC/C OMPLE TE BLD COUNT W/DIF F immature granulocytes ,absolute 0.02 x10'3 /uL 0.00-0 .05 Not Available [facility] (Lab) [address] [place], [address], 01/15/2022 17:04:14 01/16/20 22 01/15/2022 CBC/C OMPLE TE BLD COUNT W/DIF F nucleated red blood cells 0.0 % -0 Not Available [facility] (Lab) [address] [place], [address], 01/15/2022 17:04:14 01/16/20 22 01/15/2022 CBC/C OMPLE TE BLD COUNT W/DIF F NRBC# 0.00 x10'3 /uL Not Available [facility] (Lab) [address] [place], [address], 01/15/2022 17:04:14 11/13/19 23 11/12/2022 BUN/B LOOD UREA NITRO GEN BUN 13 mg/dL 8-19 Not Available [facility] (Lab) [address] [place], [address], 11/12/2022 10:23:50 11/13/19 23 11/12/2022 CREAT ININE creatinine 0.76 mg/dL 0.66-1 .25 Not Available [facility] (Lab) [address] [place], [address], 11/12/2022 10:23:53 11/13/19 23 11/12/2022 CREAT ININE GFR >60 Refer ence Range : [place] ge GFR Healt hy Adult : >60 mL/mi n/1.7 3 m2 Chron ic Kidne y Disea se: 15-60 mL/mi n/1.7 3 m2 Kidne y Failu re: <15/m L/min /1.73 m2 www.n iddk. nih.g ov The MDRD study equat ion has not been valid ated in child kamlesh <18 years of age; pregn ant women ; the elder ly >85 years of age; or in some racia l or ethni c subgr oups, such as Hispa nics. Outsi de the valid ated hermes eters , estim ated GFR is less accur ate, requi ring clini stephanie judgm ent on a case- by-ca se basis . Clini stephanie inter preta tion for other races and ages must be made by the clini jojo. The MDRD study equat ion has not been valid ated for the evalu ation of serum creat inine relat ed to nutri mami l statu s or medic ation usage . For perso ns <18 years of age, a pedia tric GFR calcu lator is avail able on the F websi te: https :[email or web address] w.[email or web address] [email or web address] rg/pr ofess ional s/kdo qi/gf r_cal culat or Not Available [facility] (Lab) [address] [place], [address], 11/12/2022 10:23:53 08/14/19 24 08/14/2023 CBC/C OMPLE TE BLD COUNT W/DIF F white blood cells 5.9 x10'3 /uL 4.2-10 .8 Not Available [facility] (Lab) [address] [place], [address], 08/14/2023 15:47:55 08/14/19 24 08/14/2023 CBC/C OMPLE TE BLD COUNT W/DIF F red blood cells 4.65 x10'6 /uL 3.80-5 .20 Not Available [facility] (Lab) [address] [place], [address], 08/14/2023 15:47:55 08/14/19 24 08/14/2023 CBC/C OMPLE TE BLD COUNT W/DIF F hemoglobin 14.4 g/dL 12.0-1 5.6 Not Available [facility] (Lab) [address] [place], [address], 08/14/2023 15:47:55 08/14/19 24 08/14/2023 CBC/C OMPLE TE BLD COUNT W/DIF F hematocrit 43.7 % 35.7-4 5.7 Not Available [facility] (Lab) [address] [place], [address], 08/14/2023 15:47:55 08/14/19 24 08/14/2023 CBC/C OMPLE TE BLD COUNT W/DIF F mean red cell volume 94.0 fL 82.0-9 9.0 Not Available [facility] (Lab) [address] [place], [address], 08/14/2023 15:47:55 08/14/19 24 08/14/2023 CBC/C OMPLE TE BLD COUNT W/DIF F mean red cell hemoglobin 31.0 pg 27.0-3 3.0 Not Available [facility] (Lab) [address] [place], [address], 08/14/2023 15:47:55 08/14/19 24 08/14/2023 CBC/C OMPLE TE BLD COUNT W/DIF F mean RBC HGB concentratio n 33.0 g/dL 31.0-3 6.0 Not Available [facility] (Lab) [address] [place], [address], 08/14/2023 15:47:55 08/14/19 24 08/14/2023 CBC/C OMPLE TE BLD COUNT W/DIF F red cell distribution width 12.8 % 11.8-1 5.5 Not Available [facility] (Lab) [address] [place], [address], 08/14/2023 15:47:55 08/14/19 24 08/14/2023 CBC/C OMPLE TE BLD COUNT W/DIF F platelets 186 x10'3 /uL 150-40 0 Not Available [facility] (Lab) [address] [place], [address], 08/14/2023 15:47:55 08/14/19 24 08/14/2023 CBC/C OMPLE TE BLD COUNT W/DIF F mean platelet volume 10.0 fL 9.0-12 .4 Not Available [facility] (Lab) [address] [place], [address], 08/14/2023 15:47:55 08/14/19 24 08/14/2023 CBC/C OMPLE TE BLD COUNT W/DIF F neutrophils 64.2 % 39.0-7 2.0 Not Available [facility] (Lab) [address] [place], [address], 08/14/2023 15:47:55 08/14/19 24 08/14/2023 CBC/C OMPLE TE BLD COUNT W/DIF F lymphocytes 24.9 % 16.0-4 7.0 Not Available [facility] (Lab) [address] [place], [address], 08/14/2023 15:47:55 08/14/19 24 08/14/2023 CBC/C OMPLE TE BLD COUNT W/DIF F monocytes 8.4 % 5.0-12 .0 Not Available [facility] (Lab) [address] [place], [address], 08/14/2023 15:47:55 08/14/19 24 08/14/2023 CBC/C OMPLE TE BLD COUNT W/DIF F eosinophils 1.5 % 1.0-7. 0 Not Available [facility] (Lab) [address] [place], [address], 08/14/2023 15:47:55 08/14/19 24 08/14/2023 CBC/C OMPLE TE BLD COUNT W/DIF F basophils 0.7 % 0.0-2. 0 Not Available [facility] (Lab) [address] [place], [address], 08/14/2023 15:47:55 08/14/19 24 08/14/2023 CBC/C OMPLE TE BLD COUNT W/DIF F immature granulocytes 0.3 % 0.00-0 .50 Not Available [facility] (Lab) [address] [place], [address], 08/14/2023 15:47:55 08/14/19 24 08/14/2023 CBC/C OMPLE TE BLD COUNT W/DIF F neutrophils, absolute count 3.81 x10'3 /uL 1.5-8. 0 Not Available [facility] (Lab) [address] [place], [address], 08/14/2023 15:47:55 08/14/19 24 08/14/2023 CBC/C OMPLE TE BLD COUNT W/DIF F lymphocytes, absolute count 1.48 x10'3 /uL 1.07-3 .43 Not Available [facility] (Lab) [address] [place], [address], 08/14/2023 15:47:55 08/14/19 24 08/14/2023 CBC/C OMPLE TE BLD COUNT W/DIF F monocytes, absolute count 0.50 x10'3 /uL 0.29-0 .99 Not Available [facility] (Lab) [address] [place], [address], 08/14/2023 15:47:55 08/14/19 24 08/14/2023 CBC/C OMPLE TE BLD COUNT W/DIF F eosinophils, absolute count 0.09 x10'3 /uL 0.02-0 .53 Not Available [facility] (Lab) [address] [place], [address], 08/14/2023 15:47:55 08/14/19 24 08/14/2023 CBC/C OMPLE TE BLD COUNT W/DIF F basophils, absolute count 0.04 x10'3 /uL 0.01-0 .08 Not Available [facility] (Lab) [address] [place], [address], 08/14/2023 15:47:55 08/14/19 24 08/14/2023 CBC/C OMPLE TE BLD COUNT W/DIF F immature granulocytes ,absolute 0.02 x10'3 /uL 0.00-0 .05 Not Available [facility] (Lab) [address] [place], [address], 08/14/2023 15:47:55 08/14/19 24 08/14/2023 CBC/C OMPLE TE BLD COUNT W/DIF F nucleated red blood cells 0.0 % -0 Not Available [facility] (Lab) [address] [place], [address], 08/14/2023 15:47:55 08/14/19 24 08/14/2023 CBC/C OMPLE TE BLD COUNT W/DIF F NRBC# 0.00 x10'3 /uL Not Available [facility] (Lab) [address] [place], [address], 08/14/2023 15:47:55 08/14/19 24 08/14/2023 LIPID PANEL cholesterol 151 mg/dL 140-19 9 NIH MIKI NSUS RECOM MENDA TION FOR CHRISTOPHER STERO L: ADULT CHILD LOW RISK: <200 <170 BORDE RLINE : <200- 239 ----- HIGH RISK: >240 >200 Not Available [facility] (Lab) [address] [place], [address], 08/14/2023 16:06:16 08/14/19 24 08/14/2023 LIPID PANEL triglyceride s 132 mg/dL 0-150 NIH MIKI NSUS REPOR T RECOM MENDA TION FOR TRIGL YCERI NORMA: ADULT CHILD LOW RISK: <150 ----- BODER LINE: 150-1 99 ----- HIGH RISK: >200 ----- Not Available [facility] (Lab) [address] [place], [address], 08/14/2023 16:06:16 08/14/19 24 08/14/2023 LIPID PANEL HDL cholesterol 53 mg/dL 40- Not Available [facility] (Lab) [address] [place], [address], 08/14/2023 16:06:16 08/14/19 24 08/14/2023 LIPID PANEL LDL cholesterol, calculated 72 mg/dL 0-130 NIH MIKI NSUS REPOR T RECOM MENDA TIONS FOR LDL: ADULT CHILD LOW RISK <130 <110 (OPTI MAL LDL) <100 ----- BORDE RLINE : 130-1 59 ----- HIGH RISK: >160 >130 A TRIGL YCERI DE RESUL T >400 INVAL IDATE S THE CALCU LATIO N FOR LDL FRACT IONAT ION - THE LDL RESUL T WILL NOT BE REPOR BABITA. Not Available [facility] (Lab) [address] [place], [address], 08/14/2023 16:06:16 08/14/19 24 08/14/2023 COMPR EHENS MARK METAB OLIC PANEL sodium 139 mmol/ L 137-14 5 Not Available [facility] (Lab) [address] [place], [address], 08/14/2023 16:06:27 08/14/19 24 08/14/2023 COMPR EHENS MARK METAB OLIC PANEL potassium 4.2 mmol/ L 3.5-5. 1 Not Available [facility] (Lab) [address] [place], [address], 08/14/2023 16:06:27 08/14/19 24 08/14/2023 COMPR EHENS MARK METAB OLIC PANEL chloride 105 mmol/ L 98-107 Not Available [facility] (Lab) [address] [place], [address], 08/14/2023 16:06:27 08/14/19 24 08/14/2023 COMPR EHENS MARK METAB OLIC PANEL carbon dioxide 27 mmol/ L 22-30 Not Available [facility] (Lab) [address] [place], [address], 08/14/2023 16:06:27 08/14/19 24 08/14/2023 COMPR EHENS MARK METAB OLIC PANEL anion gap 11.2 mmol/ L 14-22 low Not Available [facility] (Lab) [address] [place], [address], 08/14/2023 16:06:27 08/14/19 24 08/14/2023 COMPR EHENS MARK METAB OLIC PANEL glucose 114 mg/dL 70-99 high Not Available [facility] (Lab) [address] [place], [address], 08/14/2023 16:06:27 08/14/19 24 08/14/2023 COMPR EHENS MARK METAB OLIC PANEL BUN 11 mg/dL 8-19 Not Available [facility] (Lab) [address] [place], [address], 08/14/2023 16:06:27 08/14/19 24 08/14/2023 COMPR EHENS MARK METAB OLIC PANEL creatinine 0.80 mg/dL 0.66-1 .25 Not Available [facility] (Lab) [address] [place], [address], 08/14/2023 16:06:27 08/14/19 24 08/14/2023 COMPR EHENS MARK METAB OLIC PANEL GFR >60 Refer ence Range : [place] ge GFR Healt hy Adult : >60 mL/mi n/1.7 3 m2 Chron ic Kidne y Disea se: 15-60 mL/mi n/1.7 3 m2 Kidne y Failu re: <15/m L/min /1.73 m2 www.n iddk. nih.g ov The MDRD study equat ion has not been valid ated in child kamlesh <18 years of age; pregn ant women ; the elder ly >85 years of age; or in some racia l or ethni c subgr oups, such as Hispa nics. Outsi de the valid ated hermes eters , estim ated GFR is less accur ate, requi ring clini stephanie judgm ent on a case- by-ca se basis . Clini stephanie inter preta tion for other races and ages must be made by the clini jojo. The MDRD study equat ion has not been valid ated for the evalu ation of serum creat inine relat ed to nutri mami l statu s or medic ation usage . For perso ns <18 years of age, a pedia tric GFR calcu latkrystin is avail able on the [facility] websi te: https :[email or web address] [email or web address] rg/pr ofess ional s/kdo qi/gf r_cal culat or Not Available [facility] (Lab) [address] [place], [address], 08/14/2023 16:06:27 08/14/19 24 08/14/2023 COMPR EHENS MARK METAB OLIC PANEL alkaline phosphatase 65 U/L 38-126 Not Available [facility] (Lab) [address] [place], [address], 08/14/2023 16:06:27 08/14/19 24 08/14/2023 COMPR EHENS MARK METAB OLIC PANEL alanine aminotransfe rase 33 U/L 0-35 Not Available [facility] (Lab) [address] [place], [address], 08/14/2023 16:06:27 08/14/19 24 08/14/2023 COMPR EHENS MARK METAB OLIC PANEL aspartate aminotransfe rase 40 U/L 15-37 high Not Available [facility] (Lab) [address] [place], [address], 08/14/2023 16:06:27 08/14/19 24 08/14/2023 COMPR EHENS MARK METAB OLIC PANEL bilirubin, total 0.60 mg/dL 0.20-1 .30 Not Available [facility] (Lab) [address] [place], [address], 08/14/2023 16:06:27 08/14/19 24 08/14/2023 COMPR EHENS MARK METAB OLIC PANEL calcium 10.0 mg/dL 8.4-10 .2 Not Available [facility] (Lab) [address] [place], [address], 08/14/2023 16:06:27 08/14/19 24 08/14/2023 COMPR EHENS MARK METAB OLIC PANEL total protein 7.6 g/dL 6.3-8. 2 Not Available [facility] (Lab) [address] [place], [address], 08/14/2023 16:06:27 08/14/19 24 08/14/2023 COMPR EHENS MARK METAB OLIC PANEL albumin 4.5 g/dL 3.0-4. 4 high Not Available [facility] (Lab) [address] [place], [address], 08/14/2023 16:06:27 08/14/19 24 08/14/2023 COMPR EHENS MARK METAB OLIC PANEL globulin 3.1 g/dL 2.6-4. 2 Not Available [facility] (Lab) [address] [place], [address], 08/14/2023 16:06:27 08/14/19 24 08/14/2023 COMPR EHENS MARK METAB OLIC PANEL A/G ratio 1.5 ratio 1.0-2. 0 Not Available [facility] (Lab) [address] [place], [address], 08/14/2023 16:06:27 08/24/19 22 06/23/2021 colon oscop y scree delilah (PROC ) No observ ation record ed. [id number] Cammy Guidry MD [address], [place], [address], 07/18/2022 06:20:03 11/13/19 23 11/12/2022 CT, abdom en + pelvi s, w/ contr ast [facility] [address] [facility] [place] [address] [facility] Name: DAISY GOODRICH Access ion #: [id number] Sex: F : 1950 3 Locati on: RAD Attend ing Physic josé: JUNIOR REGALADO Orderi ng Physic josé: JUNIOR REGALADO Exam Date: 023 9:49 AM Exam Name: CT ABDOME N PELVIS W Admitt ing Diagno sis(es ): RADIOL OGY REPORT - FINAL EXAM: CT ABDOME N PELVIS W HISTOR Y: Interm ittent abdomi nal pain unexpl ained loss of weight COMPAR GE: 2016 TECHNI QUE: The abdome n and pelvis are evalua babita with intrav enous contra st. Axial images are recons tructe d in the finn l, sagitt al, and axial planes and are review ed with medias tinal lung window s settin gs. This CT exam was perfor med using one or more of the follow ing dose reduct ion techni ques: Automa babita exposu re contro l, adjust ment of the mA and/or kV accord ing to patien t size, or use of iterat mark recons tructi on techni que. Dose: 100 ML Isovue 300 intrav enous Page 1 of 4 [facility] DAISY GOODRICH Access ion #: [id number] Sex: F : 1950 3 Exam Date: 023 9:49 AM Exam Name: CT ABDOME N PELVIS W Admitt ing Diagno sis(es ): Oral contra st:600 mL 2% weight per volume barium PO FINDIN GS: Lower chest: Finn ry artery calcif icatio ns. Mild thicke delilah of the mucosa of the distal esopha dejuan and GE juncti on consid er direct visual izatio n. Area of thicke theo mucosa of the body of the stomac h this could also be direct ly evalua babita at that time. CT ABDOME N: Liver: Fatty liver parenc hymal replac ement residu als, probab le 3 mm cyst, image [id number] . Gallbl adder and biliar y system : Cholec ystect aspen residu als. Spleen : Normal size Pancre as: No acute proces s Adrena l glands : Interv al increa se in size of the right adrena l mass now measur ing 29 mm demons tratin g an attenu ation value of [address] images . Kidney s and ureter s: No acute proces s. Bilate ral extrar enal pelvis phenom enon no defini te persis ting hydrou reter. Append ix: No eviden ce of append icitis Stomac h and bowel: Stool is noted throug hout the large colon Page 2 of 4 [facility] t Name: DAISY GOODRICH Access ion #: [id number] Sex: F : 1950 3 Exam Date: 023 9:49 AM Exam Name: CT ABDOME N PELVIS W Admitt ing Diagno sis(es ): Perito sydnee cavity : Unrema rkable Lymph nodes: No lympha denopa thy Vascul ature: No aneury sm Osseou s struct ures: Multil evel degene rative change s, no acute proces s Extra abdomi nal soft tissue s: Unrema rkable CT PELVIS : Reprod uctive : Hyster ectomy residu als Rectos igmoid : No acute proces s, stool Bladde r and distal ureter s: Unrema rkable , possib le vesico sarah. Extra pelvic soft tissue s: Unrema rkable IMPRES ZAIN: 1. Slight increa se in the size of the right adrena l mass previo usly noted demons trate fat densit y on the noncon trast image. That was in 2017. Recomm end a noncon trast CT examin ation of the abdome n only to evalua te the right adrena l gland. 2. Thicke theo mucosa of the stomac h and GE juncti on recomm end direct visual izatio n. 3. Hyster ectomy residu als, probab le vesico sarah. Page 3 of 4 [facility] t Name: DAISY GOODRICH Access ion #: [id number] Sex: F : 1950 3 Exam Date: 9:49 AM Exam Name: CT ABDOME N PELVIS W Admitt ing Diagno sis(es ): 4. There is a modera te volume of stool primar jamar within the right colon consid er consti pation 5. Other findin gs descri bed above. Create d and electr onical ly signed by: Dennis stern MD Signed Date: 11:53 AM (CT) Dictat ed by: Dennis stern MD DD: 11:53 AM (CT) DT: 11:53 AM (CT) Page 4 of 4 [email or web address] [facility] (Imaging) [address] [place], [address], 03/04/2023 11:04:28 12/18/19 23 12/17/2022 MAMMO , scree delilah, digit al, bilat eral [facility] [address] [place] [address] Patien t Name: DAISY GOODRICH Access ion #: [id number] Sex: F : 1950 6 Dictat ed By: Horacio Talley Attend ing Physic josé: JUNIOR REGALADO Orderi Physic josé: JUNIOR REGALADO Exam Date: 2022 09:56 AM Exam Name: MG SCRN BREAST DANIAL BILAT Admitt ing Diagno sis(es ): Compar ge: 1 Screen ing mammog jillian Techni que: Bilate ral CC and latera l images obtain ed are fulfil led with bilate ral tomosy nsthes is. Breast compos ition: Hetero genous ly dense. Digita l techni que per standa rd protoc ol Findin gs: No suspic ious mass or calcif icatio n is identi fied. No rosario ectura l distor tion is seen. There are no abnorm alitie s around the nipple areola r comple x. No adenop athy is apprec iated. . Conclu zain: No mammog raphic eviden ce of malign diana. Mammog raphic assess ment catego ry: BI-RAD S catego ry: 1 Negati ve Electr onical ly Signed by: Horacio Talley at 2022 12:38: 40 PM Page 1 [email or web address] [facility] ([facility]) [address] [place], [address], 03/04/2023 11:04:28 12/18/19 23 12/17/2022 CT, abdom en, w/o contr ast [facility] [address] [place] [address] Patien t Name: DAISY GOODRICH Access ion #: [id number] Sex: F : 1950 6 Dictat ed By: Horacio Talley Attend ing Physic josé: JUNIOR REGALADO Orderi Physic josé: JUNIOR REGALADO Exam Date: 2022 10:02 AM Exam Name: CT ABDOME N WO Admitt ing Diagno sis(es ): Exam: CT abdome n withou t contra st dated 023 10:02 AM Histor y: 72 years old Female with adrena l mass. Compar ge Study: None availa ble at time of dictat ion. Techni que: Multid etecto r spiral CT of the abdome n was perfor med from lung bases to iliac crest. Imagin g was perfor med withou t IV contra st. Axial, finn l and sagitt al multip lanar reform ats were obtain ed from the axial data set by the techno logist . Radiat ion Dose : CTDI volume is 14 mGy. Dose-l ength produc t is 550 mGy*cm Findin gs: Evalua tion of solid organs is limite d due to lack of intrav enous contra st use. Lung Bases: No acute or signif icant lung base findin g. Normal heart size. No pleura l or perica rdial effusi on. Liver: Hepati c steato sis. Gallbl adder and Biliar y Tree: Surgic ally absent . Spleen : Unrema rkable Pancre as: The pancre as is grossl y normal in appear ance. Adrena l Glands : Stable 3 cm right adrena l mass and compar e prior study dated 023. Hounsf ield units measur e approx imatel y 10 Hounsf ield units. Page 1 [facility] [address] [place] [address] Patien t Name: DAISY GOODRICH Access ion #: [id number] Sex: F : 1950 6 Dictat ed By: Horacio Talley Attend ing Physic josé: AUSTIN RONQUILLO [facility] Physic josé: JUNIOR REGALADO Exam Date: 2022 10:02 AM Exam Name: CT ABDOME N WO Admitt ing Diagno sis(es ): Kidney s: Kidney s are grossl y normal withou t calcul i or hydron ephros is. Visual ized Bowel: The stomac h is grossl y normal in appear ance. Small bowel and colon are normal in calibe r and distri bution . Ascite s: Absent Lympha denopa thy: No mesent alvaro, retrop eriton eal or peripo rtal lympha denopa thy. Abdomi nal Wall and Mesent jennifer: Unrema rkable . Vascul ature: The visual ized abdomi nal aorta is normal in size and calibe r. Evalua tion of abdomi nal and pelvic vessel s is limite d due to lack of intrav enous contra st. Muscul oskele alyssia: No aggres sive focal bony lesion s, acute fractu res or disloc ation. IMPRES ZAIN: 1. Probab le right adrena l adenom a. END IMPRES ZAIN: Electr onical ly Signed by: Horacio Talley at 2022 17:54: 37 PM Page 2 [email or web address] [facility] ([facility]) [address] [place], [address], 03/04/2023 11:04:29 03/04/20 23 03/04/2023 XR, cervi stephanie spine [facility] [address] [place] [address] [phone] Patien t Name: DAISY GOODRICH Access ion #: [id number] Sex: F : 1950 6 Dictat ed By: Eduardo Ward Attend ing Physic josé: JUNIOR REGALADO Orderi Physic josé: JUNIOR REGALADO Exam Date: 2022 09:39 AM Exam Name: XR C SPINE 4-5V Admitt ing Diagno sis(es ): INDICA TION: Trauma . TECHNI QUE6 views of the cervic al spine were obtain ed. COMPAR GE: None. FINDIN GS: The cervic al spine is visual ized from C1-C7. There is loss of the normal cervic al lordos is which can be positi onal. No fractu res or sublux ations are identi fied. Verteb ral body height s and disc spaces are well mainta ined. Alignm ent appear s unrema rkable . Prever tebral soft tissue s are within normal limits . Cervic othora cic juncti on is normal . IMPRES ZAIN: 1. No eviden ce for fractu re or sublux ation. Electr onical ly Signed by: Eduardo Ward at 2022 10:53: 49 AM Page 1 [email or web address] [facility] ([facility]) [address] [place], [address], 04/20/2023 20:55:32 08/14/19 24 08/14/2023 XR, chest , 2 view [facility] [address] [place] [address] [phone] Patien t Name: DASIY GOODRICH Access ion #: [id number] Sex: F : 1950 0 Dictat ed By: Horacio Talley Attend ing Physic josé: JUNIOR REGALADO Physic josé: JUNIOR REGALADO Exam Date: 2023 13:54 PM Exam Name: XR CHEST 2V Admitt ing Diagno sis(es ): XR CHEST 2V CLINIC AL HISTOR Y: dyspn ea on exerti on COMPAR GE: None TECHNI QUE: Fronta l and latera l view of the chest was obtain ed FINDIN GS: Lines and Tubes: None Lungs: No focal consol idatio n. Pleura : No effusi on. No pneumo thorax . Cardio medias tinal contou rs: Unrema rkable Bones: No acute osseou s abnorm ality. IMPRES ZAIN: No acute cardio pulmon lizabeth diseas e. Electr onical ly Signed by: Horacio Talley at 2023 14:38: 45 PM Page 1 [email or web address] [facility] ([facility]) [address] [place], [address], 11/18/2023 09:36:37 02/27/20 24 02/27/2024 scree delilah breas t danial, bilat [facility] [address] [address] Patien t Name: DAISY GOODRICH Access ion #: [id number] Sex: F : 1950 3 Dictat ed By: Junior ng Attend ing Physic josé: JUNIOR REGALADO Physic josé: JUNIOR REGALADO Exam Date: 2023 08:33 AM Exam Name: MG SCRN BREAST DANIAL BILAT Admitt ing Diagno sis(es ): PROCED URE: SCREEN ING MAMMOG JILLIAN WITH TOMOSY NTHESI S REASON FOR EXAM: screen ing mammog jillian. No person al histor y of breast cancer . Histor y of prior benign left breast surgic al biopsy . No family histor y of breast cancer . COMPAR GE: MG SCRN BREAST DANIAL BILAT on DOS: 3, MG SCRN BREAST DANIAL BILAT 3D on DOS: 1, SCREEN ING BREAST DANIAL, BILAT 3D on DOS: TECHNI QUE: Bilate ral CC and MLO views obtain ed. Images were obtain ed using a Digita l Tomosy nthesi s Unit. Standa rd 2D and 3D Tomosy nthesi s images were review ed. FINDIN GS: BREAST COMPOS ITION: A - The breast s are almost entire ly fatty. In the right breast , there are stable calcif icatio ns. No new or suspic ious findin g. In the left breast , there are stable calcif icatio ns. No new or suspic ious findin g. IMPRES ZAIN: No mammog raphic eviden ce of malign diana. RECOMM ENDATI ON: Recomm end annual mammog jillian. ASSESS MENT: BIRADS : 2 - Benign Page 1 [facility] [address] [place] [address] [phone] Patien t Name: DAISY GOODRICH [employer] ion #: [id number] Sex: F : 1950 3 Dictat ed By: Junior ng Attend ing Physic josé: [facility] Physic josé: JUNIOR REGALADO Exam Date: 2023 08:33 AM Exam Name: MG SCRN BREAST DANIAL BILAT Admitt ing Diagno sis(es ): Electr onical ly Signed by: Junior ng at 2023 07:13: 02 AM Page 2 [email or web address] [facility] ([facility]) [address] [place], [address], 03/04/2024 12:45:38 02/27/20 24 02/27/2024 DEXA, axial skele ton [facility] [address] [place] [address] Patien t Name: DAISY GOODRICH Access ion #: [id number] Sex: F : 1950 [facility] #: [id number] Dictat ed By: Junior ng Attend ing Physic josé: JUNIOR REGALADO [facility] Physic josé: JUNIOR REGALADO Exam Date: 2023 08:28 AM Exam Name: XR DEXA-H IPS PELVIS SPINE Admitt ing Diagno sis(es ): CLINIC AL HISTOR Y: postme nopaus al screen ing for osteop orosis . TECHNI QUE: The study was perfor med using a Dexcom Unit. Lumbar spine and proxim al femora l evalua tions were evalua babita in the fronta l projec tions. COMPAR GE: XR DEXA-H IPS PELVIS SPINE on DOS: 1 FINDIN GS: L1-L4 demons trates a bone minera l densit y of 1.345 g/cm2 with a T-scor e of 1.2, within normal limits . There has been a 2.1% interv al decrea se in bone minera l densit y in the lumbar spine compar ed to the prior exam. Left femora l neck evalua tion demons trates a bone minera l densit y of 0.935 g/cm2 with a T-scor e of -0.7, within normal limits . Right femora l neck evalua tion demons trates a bone minera l densit y of 0.845 g/cm2 with a T-scor e of -1.4, consis tent with osteop enia. There has been a 2.4% interv al decrea se in bone minera l densit y in the total mean proxim al femora compar ed to the prior exam. Estima babita total body fat is 50%. BMI is 30.1 IMPRES ZAIN: Bone minera l densit y is consis tent with osteop enia based on lowest t-scor e as detail ed above. Electr onical ly Signed by: Junior ng at 2023 07:19: 57 AM Page 1 [email or web address] [facility] ([facility]) [address] [place], [address], 03/04/2024 12:45:39 Result Notes None recorded. Problems Name Problem SNOMED Code Status Onset Date Resolution Date Notes Provider Name and Address Organization Details Recorded Time Abdominal pain 65314732 Active Not Available [facility] 3 11:43:55 Gastroeso phageal reflux disease without esophagit is 487163525 Active 2018 Not Available [facility] 3 11:43:55 Current tear of medial cartilage AND/OR meniscus of knee Active Not Available [facility] 3 11:43:55 Current tear of lateral cartilage AND/OR meniscus of knee Active Not Available [facility] 3 11:43:55 Hepatitis C antibody detected 959514343 Active Not Available [facility] 3 11:43:55 Depressiv e disorder 46966897 Active 2021 Not Available [facility] 3 11:43:55 Vertigo 712261489 Active Not Available [facility] 3 11:43:55 Anxiety 70913777 Active 2021 Not Available [facility] 3 11:43:55 Upper respirato ry infection 84563950 Active 2021 Not Available [facility] 3 11:43:55 Hyperlipi demia 98661293 Active 2021 Not Available [facility] 3 11:43:55 Polyp of colon 92264265 Active 2017 Not Available [facility] 3 11:43:55 Rheumatoi d arthritis 05231453 Active 2017 Not Available [facility] 3 11:43:55 Gastric polyp 82485898 Active 2021 endoscopy June 2021 Not Available [facility] 3 11:43:55 Cough 85982287 Active 2022 Not Available [facility] 3 11:43:55 CT of abdomen abnormal [id number] 017741 Active 2022 Not Available [facility] 3 11:43:55 Neck pain 59585543 Active 2022 Not Available [facility] 3 11:43:55 Problem Notes None recorded. Procedures Surgical History Date Name Laterality Status Provider Name and Address Organization Details Recorded Time 06/23/19 22 Colonoscopy completed Not Available [facility] 07/18/2022 06:00:07 12/27/19 19 Knee arthroscopy/surger y completed Not Available [facility] 07/18/2022 06:00:07 07/23/19 19 Cholecystectomy completed Not Available [facility] 07/18/2022 06:00:07 03/14/20 16 Colonoscopy completed Not Available [facility] 07/18/2022 06:00:07 Breast Biopsy completed Not Available [facility] 07/18/2022 06:00:07 Hysterectomy, Partial completed Not Available [facility] 07/18/2022 06:00:07 other completed Not Available [facility] 07/18/2022 06:00:07 Imaging Results Imaging Date Name Status LastModified by Organiz ation Details LastModified Time 06/23/2021 colonoscopy screening (PROC) completed [id number] Cammy Guidry MD [address] [facility] [address], [place], [address], 07/18/2022 06:20:03 11/12/2022 CT, abdomen + pelvis, w/ contrast completed [email or web address] [facility] ([facility]) [address] [place], [address], 03/04/2023 11:04:28 12/17/2022 MAMMO, screening, digital, bilateral completed [email or web address] [facility] ([facility]) [address] [place], [address], 03/04/2023 11:04:28 12/17/2022 CT, abdomen, w/o contrast completed [email or web address] [facility] ([facility]) [address] [place], [address], 03/04/2023 11:04:29 03/04/2023 XR, cervical spine completed [email or web address] [facility] ([facility]) [address] [place], [address], 04/20/2023 20:55:32 08/14/2023 XR, chest, 2 view [email or web address] [address] [place], [address], 11/18/2023 09:36:37 02/27/2024 screening breast danial, bilat [email or web address] ([facility]) [address] [place], [address], 03/04/2024 12:45:38 02/27/2024 DEXA, axial skeleton completed [address] (Imaging) [address] [place], [address], 03/04/2024 12:45:39 Procedure Notes None recorded. Medical Equipment None Reported. Allergies No known drug allergies Medications Name Sig Start Date Stop Date Status Note LastModified by Organization Details LastModified Time carisopro dol 350 mg tablet TAKE 2 TABLETS BY MOUTH EVERY DAY AT BEDTIME 03/04 completed Not Available Not Available Not Available bupropion HCl SR 150 mg tablet,12 hr sustained -release TK 1 T PO QD 06/25 completed Not Available Not Available Not Available prednison e 10 mg tablet take po as directed 01/12 completed Not Available Not Available Not Available tizanidin e 2 mg tablet TAKE 1 TO 2 TABLETS BY MOUTH EVERY DAY AT BEDTIME active Not Available Not Available No t Available atorvasta tin 10 mg tablet TAKE 1 TABLET BY MOUTH EVERY DAY active Not Available Not Available No t Available azithromy palmer 250 mg tablet TAKE 2 TABLETS BY MOUTH FOR 1 DAY THEN TAKE 1 TABLET BY MOUTH DAILY FOR 4 DAYS 11/16 completed Not Available Not Available Not Available tramadol 37.5 mg-acetam inophen 325 mg tablet 06/15 completed Not Available Not Available Not Available ofloxacin 0.3 % eye drops 09/14 completed Not Available Not Available Not Available hydrocodo ne 5 mg-acetam inophen 325 mg tablet 05/22 completed Not Available Not Available Not Available ondansetr on HCl 4 mg tablet Take 2 tablets 3 times a day by oral route as needed. 09/14 completed Not Available Not Available Not Available famotidin e 40 mg tablet 06/15 completed Not Available Not Available Not Available prednison e 20 mg tablet 01/23 completed Not Available Not Available Not Available aspirin 81 mg tablet,de layed release Take 1 tablet every day by oral route. 2020 active Not Available Not Available Not Avai lable tramadol 50 mg tablet 09/20 completed Not Available Not Available Not Available amoxicill in 500 mg tablet Take 1 tablet 3 times a day by oral route for 7 days. active Not Available Not Available No t Available mycopheno late mofetil 500 mg tablet Take 2 tablets twice a day by oral route for 90 days. active Not Available Not Available No t Available meloxicam 7.5 mg tablet 06/25 completed Not Available Not Available Not Available oxycodone -acetamin ophen 5 mg-325 mg tablet 09/19 completed Not Available Not Available Not Available methotrex ate sodium 2.5 mg tablet TK 6 TS PO 1 TIME Q 7 DAYS 01/12 completed Not Available Not Available Not Available dicyclomi ne 20 mg tablet 03/24 completed Not Available Not Available Not Available meclizine 25 mg tablet Take 1 tablet 3 times a day by oral route as needed. active Not Available Not Available No t Available cephalexi n 500 mg capsule TK 1 C PO TID FOR 10 DAYS 03/24 completed Not Available Not Available Not Available gabapenti n 300 mg capsule 11/14 completed Not Available Not Available Not Available sertralin e 25 mg tablet TAKE 1 TABLET BY MOUTH EVERY DAY 2022 active Not Available Not Available Not Avai lable Banophen 25 mg capsule TK 1 TO 2 CS PO D 05/22 completed Not Available Not Available Not Available folic acid 1 mg tablet 01/24 completed Not Available Not Available Not Available bisacodyl 5 mg tablet,de layed release 08/23 completed Not Available Not Available Not Available ergocalci ferol (vitamin D2) 1,250 mcg (50,000 unit) capsule TK 1 C PO 1 TIME WEEKLY 01/23 completed Not Available Not Available Not Available clobetaso l 0.05 % topical ointment 06/15 completed Not Available Not Available Not Available hydroxych loroquine 200 mg tablet TAKE 2 TABLETS BY MOUTH ONCE DAILY active Not Available Not Available No t Available polyethyl joe glycol 3350 17 gram/dose oral powder 11/14 completed Not Available Not Available Not Available levofloxa palmer 500 mg tablet Take 1 tablet every day by oral route for 10 days. 11/27 completed Not Available Not Available Not Available insulin syringe U-100 with needle 1 mL 30 gauge x 7/16 U UTD WEEKLY 09/14 completed Not Available Not Available Not Available methylpre dnisolone 4 mg tablets in a dose pack TK PO UTD 11/10 completed Not Available Not Available Not Available hydrocort isone 2.5 % topical ointment BEBO EXT AA ON FACE BID FOR 2-3 WEEKS 01/25 completed Not Available Not Available Not Available diazepam 5 mg tablet Take 0.5 tablets twice a day by oral route. 09/14 completed Not Available Not Available Not Available Vitamin D3 25 mcg (1,000 unit) capsule TK 1 CAPSULE PO DAILY active Not Available Not Available No t Available methotrex ate sodium (PF) 25 mg/mL injection solution 09/19 completed Not Available Not Available Not Available bupropion HCl XL 300 mg 24 hr tablet, extended release Take 1 tablet every day by oral route for 30 days. active Not Available Not Available No t Available duloxetin e 60 mg capsule,d elayed release 11/14 completed dizzines s Not Available Not Available Not Available lansopraz ole OTC 2020 active Not Available Not Available Not Avai lable peg 3350-elec trolytes 236 gram-22.7 4 gram-6.74 gram-5.86 gram solution 08/23 completed Not Available Not Available Not Available Q-PAP Extra Strength 500 mg tablet TK 2 TS PO TID PRN 01/30 completed Not Available Not Available Not Available Suprep Bowel Prep Kit 17.5 gram-3.13 gram-1.6 gram oral solution 11/14 completed Not Available Not Available Not Available Eucrisa 2 % topical ointment APPLY A THIN LAYER TO THE AFFECTED AREA(S) BY TOPICAL ROUTE 2 TIMES PER DAY 09/14 completed Not Available Not Available Not Available Afluria Qd 2020-21 (36 mos up)(PF)60 mcg (15 mcg x4)/0.5 mL IM syringe ADM 0.5ML IM UTD 01/24 completed Not Available Not Available Not Available Vitals Date Recorded Body mass index (BMI) Body height Heart rate Body temperature Body weight Systolic blood pressure Diastolic blood pressure Provider Name and Address Organization Details Last Updated DateTime 2 31.8 kg/m2 152.4 cm 72 /min 97.7 [degF] 74254.5 6 g 120 mm[Hg] 62 mm[Hg] Not Available [facility] 3 06:01:15 Date Recorded Body mass index (BMI) Body height Heart rate Body temperature Body weight Systolic blood pressure Diastolic blood pressure Provider Name and Address Organization Details Last Updated DateTime 2 31.1 kg/m2 152.4 cm 90 /min 96.6 [degF] 95169.1 9 g 124 mm[Hg] 70 mm[Hg] Not Available [facility] 3 06:01:15 Date Recorded Body mass index (BMI) Body height Heart rate Body temperature Body weight Systolic blood pressure Diastolic blood pressure Provider Name and Address Organization Details Last Updated DateTime 3 31.2 kg/m2 152.4 cm 81 /min 97.8 [degF] 00015.7 8 g 126 mm[Hg] 78 mm[Hg] Not Available [facility] 3 06:01:15 Date Recorded Body height Body mass index (BMI) Body weight Body temperature Heart rate Systolic blood pressure Diastolic blood pressure Provider Name and Address Organization Details Last Updated DateTime 3 152.4 cm 29.9 kg/m2 33182.6 3 g 97.8 [degF] 97 /min 118 mm[Hg] 80 mm[Hg] Leida Covington MA [facility] [employer] 3 10:28:35 Date Recorded Body height Body weight Body temperature Heart rate Oxygen saturation Oxygen saturation in Arterial blood by Pulse oximetry Systolic blood pressure Diastolic blood pressure Provider Name and Address Organization Details Last Updated DateTime 3 152.4 cm 69205.2 2 g 97.4 [degF] 82 /min 98 % 98 % 118 mm[Hg] 70 mm[Hg] Ashley Nath RN [facility] [employer] 3 10:00:06 Social History Question Answer Notes LastModified by Organization Details LastModified Time Tobacco Smoking Status Former Smoker quit age 29 Not Available [facility] 07/18/2022 05:56:44 Do You Have An Advance Directive? No [id number] Information not available 07/18/2022 What Is Your Level Of Alcohol Consumption? None [id number] Information not available 07/18/2022 Are You Blind Or Do You Have Difficulty Seeing? No [id number] Information not available 07/18/2022 What Is Your Level Of Caffeine Consumption? Moderate [id number] Information not available 07/18/2022 In The 14 Days Before Symptom Onset, Have You Had Close Contact With A Laboratory-confi rmed COVID-19 While That Case Was Ill? No [id number] Information not available 07/18/2022 In The 14 Days Before Symptom Onset, Have You Had Close Contact With A Person Who Is Under Investigation For COVID-19 While That Person Was Ill? No [id number] Information not available 07/18/2022 Are You Deaf Or Do You Have Serious Difficulty Hearing? No MIGRATION.0301 [id number] Information not available 07/18/2022 What Type Of Diet Are You Following? REGULAR MIGRATION.030 686249 Information not available 07/18/2022 What Is The Highest Grade Or Level Of School You Have Completed Or The Highest Degree You Have Received? 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 No MIGRATION.0301 715781 Information not available 07/18/2022 What Is The Fluoride Status Of Your Home? Unknown MIGRATION.0301 402022 Information not available 07/18/2022 When Did You Quit Smoking? 16+yearssincelastc igarette MIGRATION.0301 602426 Information not available 07/18/2022 Are There Any Guns Present In Your Home? No MIGRATION.0301 475738 Information not available 07/18/2022 Do You Use Insect Repellent Routinely? No MIGRATION.0301 420010 Information not available 07/18/2022 Where Do You Live? SingleLevelHouse MIGRATION.0301 442518 Information not available 07/18/2022 Do You Have A Medical Power Of Passenger Car Conductor? No MIGRATION.0301 410198 Information not available 07/18/2022 What Was The Date Of Your Most Recent Tobacco Screening? 03/04/2023 [email or web address] Information not available 03/04/2023 Do You Have Any Pets? No MIGRATION.0301 097222 Information not available 07/18/2022 What Is Your Relationship Status? MIGRATION.0301 023951 Information not available 07/18/2022 Do You Use Your Seat Belt Or Car Seat Routinely? Yes MIGRATION.0301 138103 Information not available 07/18/2022 Do You Have Smoke And Carbon Monoxide Detectors In Your Home? No MIGRATION.0301 013728 Information not available 07/18/2022 Are You Passively Exposed To Smoke? No MIGRATION.0301 156283 Information not available 07/18/2022 Are There Any Smokers In Your House? No MIGRATION.0301 722870 Information not available 07/18/2022 What Types Of Sporting Activities Do You Participate In? None MIGRATION.0301 452435 Information not available 07/18/2022 Do You Feel Stressed (tense, Restless, Nervous, Or Anxious, Or Unable To Sleep At Night)? [id number] MIGRATION.0301 133137 Information not available 07/18/2022 Do You Use Any Illicit Or Recreational Drugs? No MIGRATION.0301 421729 Information not available 07/18/2022 Do You Use Sunscreen Routinely? Yes MIGRATION.0301 563064 Information not available 07/18/2022 Has Tobacco Cessation Counseling Been Provided? No MIGRATION.0301 697410 Information not available 07/18/2022 Have You Recently Traveled Abroad? No MIGRATION.0301 021513 Information not available 07/18/2022 Do You Have Any Dietary Restrictions? No MIGRATION.0301 180472 Information not available 07/18/2022 Do You Or Have You Ever Used Any Other Forms Of Tobacco Or Nicotine? No MIGRATION.0301 055393 Information not available 07/18/2022 Sex: Female Functional Status Question Answer Note LastModified by Organizat ion Details LastModified Time Do you have difficulty walking or climbing stairs? No MIGRATION.8116655 026 Information not available 07/18/2022 Do you have transportation difficulties? No MIGRATION.8639434 026 Information not available 07/18/2022 Are you able to walk? YESWOREST MIGRATION.5904239 026 Information not available 07/18/2022 Do you have difficulty doing errands alone? No MIGRATION.6775119 026 Information not available 07/18/2022 Are you able to care for yourself? Yes MIGRATION.8346741 026 Information not available 07/18/2022 Do you have difficulty dressing or bathing? No MIGRATION.8612354 026 Information not available 07/18/2022 What is your exercise level? Occasional MIGRATION.5603941 026 Information not available 07/18/2022 Mental Status Question Answer Note LastModified by Organizat ion Details LastModified Time Do you have difficulty concentrating, remembering or making decisions? No MIGRATION.[id number] 6 Information not available 07/18/2022 Family History Relationship Description Onset Age of this Age Resolved Age Notes LastModified by Organization Details LastModified Time Mother Rheumatoid arthritis 69 MIGRATION.047 [id number] Not available 07/18/2022 06:00:08 Mother Lupus erythematosu s 69 MIGRATION.455 9600486 Not available 07/18/2022 06:00:08 Father Heart disease 60 MIGRATION.218 1960477 Not available 07/18/2022 06:00:08 Daughter Cholecystect aspen MIGRATION.186 [id number] Not available 07/18/2022 06:00:08 Sister Malignant tumor of lung MIGRATION.176 [id number] Not available 07/18/2022 06:00:09 Paternal Uncle Heart disease MIGRATION.711 [id number] Not available 07/18/2022 06:00:09 Medical History Condition Response BLINDNESS N NERVE DISEASE N RHEUMATIC FEVER N BLADDER PROBLEMS N KIDNEY STONES N MRSA N OTHER # 1 Y POLIO N LUNG DISEASE/DISORDER N HISTORY OF DRUG ABUSE N RADIATION / CHEMOTHERAPY N COPD N Other # 2 N BLOOD DISEASES N EAR OR HEARING PROBLEMS N MUMPS N SHINGLES N DEPRESSION (INCLUDING POST ) N BOWEL PROBLEMS N STROKE/TIA N ULCERS N BENIGN PROSTATIC HYPERPLASIA N MEASLES N HYPOTENSION N MYOCARDIAL INFARCTION N OBESITY N GERD/NAUSEA Y ANEURYSM N URINARY/BLADDER/KIDNEY PROBLEMS N CORONARY ARTERY DISEASE (CAD) N ADDICTION CONCERNS N Impotence N ENDOMETRIOSIS N USE OF BLOOD THINNERS N SKIN PROBLEMS N GASTROINTESTINAL DISORDER N PERIPHERAL VASCULAR DISEASE N MUSCLE,JOINT OR BONE PROBLEMS N GASTROINTESTINAL BLEEDING N BLOOD CLOTS N ASTHMA N CATARACTS N ERECTILE DYSFUNCTION N VARICOSITIES N GI PROBLEMS N Low Testosterone N INFERTILITY N AIDS/HIV N CHEMOTHERAPY / RADIATION N LIVER DISEASE N MALE HYPOGONADISM N HYPERTENSION N Deficiency N TOURETTE'S N ANXIETY DISORDER Y BLOOD TRANSFUSION N ANEMIA/BLOOD DISORDER N CHRONIC EAR INFECTIONS N BRONCHITIS N TUBERCULOSIS N GLAUCOMA N FOOT PROBLEM N DIVERTICULITIS N SLEEP APNEA N CHICKENPOX N INFECTIOUS DISEASE N PROSTATE N HEART ARRHYTHMIA N INSOMNIA N HIGH CHOLESTEROL / HYPERLIPIDEMIA N EYE PROBLEMS N HYPERTHYROIDISM N EDEMA N CHRONIC PAIN SYNDROME N HYPOTHYROIDISM N CAROTID BLOCKAGE N CONSTIPATION N BACK / NECK PROBLEMS N ATHEROSCLEROSIS N BREAST PROBLEMS N DIALYSIS N ECZEMA N OSTEOPOROSIS N ARTHRITIS Y APPENDICITIS N DIABETES, TYPE N BAD TEETH N ENT N HEARTBURN / REFLUX N AUTISM SPECTRUM DISORDER (ASD) N HEPATITIS / LIVER DISEASE N GOUT N SLEEP DISORDER N ALZHEIMER'S DISEASE N Brain Problems N DEMENTIA N HERPES N SEIZURES/EPILEPSY N HEADACHES/MIGRAINES N VASCULAR DISEASE N PACEMAKER N Blood Disorder N DIZZINESS Y HEART DISEASE/HEART PROBLEMS N KIDNEY DISEASE N MULTIPLE SCLEROSIS N CANCER: SPECIFY N CARDIAC ARRHYTHMIA N ATRIAL FIBRILLATION N Gall Stones N PULMONARY EMBOLISM N AUTOIMMUNE DISEASE N Gynecological HistoryNo gynecological history recorded. Obstetrics History GPAL:G 1 P 1 0 0 0 Type Value Full Term 1 Total 1 Immunizations Vaccine Type Date Status Note Provider Nam e and Address Organization Details Recorded Time Influenza, high-dose, quadrivalent, PF 9 completed Not Available [facility] 03/11/2023 11:43:56 COVID-19, mRNA, LNP-S, PF, 30 mcg/0.3 mL dose 1 completed Not Available [facility] 03/11/2023 11:43:57 Influenza, high-dose, quadrivalent, PF 1 completed Not Available [facility] 03/11/2023 11:43:56 COVID-19, mRNA, LNP-S, PF, 30 mcg/0.3 mL dose 1 completed Not Available [facility] 03/11/2023 11:43:56 COVID-19, mRNA, LNP-S, PF, 30 mcg/0.3 mL dose 1 completed Not Available [facility] 03/11/2023 11:43:56 Influenza, split virus, quadrivalent, preservative 0 completed Not Available [facility] 03/11/2023 11:43:56 pneumococcal polysaccharide PPV23 2 completed Not Available [facility] 03/11/2023 11:43:57 Pneumococcal conjugate PCV 13 1 completed Not Available [facility] 03/11/2023 11:43:57 Past Encounters Encounter ID Performer Location Encounter Start Date Encounter Closed Date Diagnosis/Indication Diagnosis SNOMED-CT Code Diagnosis ICD10 Code Diagnosis Note [id number] [facility] [address] [place] [address] [place] [address] 01/25/2021 00:00:00 01/25/2021 21:32:58 [id number] [facility] [address] [place] [address] [place] [address] 05/24/2021 00:00:00 06/17/2021 14:43:10 [id number] [facility] Internal Med [facility] [address] [place], [place] [address]e., [address] [address] 08/23/2021 00:00:00 09/02/2021 21:59:08 [id number] [facility] [address] [address] 09/20/2021 00:00:00 10/08/2021 19:53:22 [id number] [facility] [address] [address] 01/05/2022 00:00:00 01/28/2022 14:00:03 [id number] [facility] [address] [address] 07/06/2022 00:00:00 07/06/2022 23:20:44 [id number] Ant Regalado MD [facility] [address] [place] [address] [place] [address] 11/16/2022 10:04:06 11/16/2022 11:59:44 Hyperlipidemia 63537449 E78.5 Gastroesop hageal reflux disease without esophagitis 905633675 K21.9 [id number] Ant Regalado MD [facility] Internal Med [facility] [address] [place] [address] [address] [place] [address] 03/04/2023 09:45:42 03/04/2023 10:30:06 Neck pain 56500957 M54.2 Anxiety 39294459 F41.9 Gastroesop hageal reflux disease without esophagitis 834263775 K21.9 Hyperlipidemia 28916804 E78.5 Rheumatoid arthritis 698 69644 M06.9 Health Concerns Section Related Observation LastModified by Organization Detai ls LastModified Time None Recorded Concern Status LastModified by Organization Details LastModified Time None Recorded Advance Directives Directive N: Payers Encounter Date Sequence Insurance Name Policy Number Policy Romeo Covered Member ID Romeo Member ID Guarantor Name 11/16/2022 1 [facility] (MEDICARE REPLACEMENT/A DVANTAGE - HMO) [id number] Daisy Joseph [id number] Daisy Joseph 03/04/2023 1 [facility] (MEDICARE REPLACEMENT/A DVANTAGE - HMO) [id number] Daisy Joseph [id number] Daisy Joseph Notes Date Note Type Note Provider Name and Address Organization Details Recorded Time 11/16/2022 text/html Upper lower endo scopy CT scan as an adrenal lesion needs further characterization Ant Regalado MD [address], [address], [place], [address], [employer] 11/17/2022 21:53:29 03/04/2023 text/html I need the upper endo report she had some polyps are: Little bit nondescript neck pain which he turns it to the left adrenal lesion seen with no significant change on her CT scan Ant Regalado MD [address], [address], [place], [address], [employer] 03/04/2023 14:09:02 OBGyn Episode No OBEpisode recorded.
--- OUTSIDE RECORDS SUMMARY | 2024-08-14 11:28 | XMS_ITS | Encounter Summary ---
Author Organization [facility] Health Address [address] [facility] [place] [place] [address] Care Team Providers Care Carpentry Supervisor Name Role Phone Ruben Meredith MD Primary Care Provider [phone] Encounter Details Date Type Department Care Team (Late st Contact Info) Description 09/15/2012 [facility] Carlos Rincon MD [address] [place] [id number] Social History Tobacco Use Types Packs/Day Years Used Date Smoking Tobacco: Former Cigarettes Alcohol Use Standard Drinks/Week Comments No 0 (1 standard drink = 0.6 oz pur e alcohol) Sex and Gender Information Value Date Recorded Sex Assigned at Not on file Gender Identity Not on file Sexual Orientation Not on file documented as of this encounter Plan of Treatment Not on file documented as of this encounter Visit Diagnoses Not on filedocumented in this encounter Care Teams Carpentry Supervisor Relationship Specialty Start Date End Date Ruben Meredith MD PCP - General 03/13/09 documented as of this encounter
--- OUTSIDE RECORDS SUMMARY | 2024-08-14 11:28 | XMS_ITS | Clinical Summary ---
Author Organization [facility] Address [address] [facility] [place] [address] Care Team Providers Care Screw Machine Set Up Operator Name Role Phone Ruben Meredith MD Primary Care Provider [phone] Source Comments [facility],non-owned Affiliates and Associated Physician Practices is amultiple site organization consisting of ambulatory clinics and hospital sitesin [place], [place], [place] and [place]. This disclosure is being madepursuant to the Care Everywhere program and may not contain all information available regarding this patient. Last updated 18.[employer] Allergies No known active allergies Medications * Be aware that medications may not be up to date on this document. Alwaysverify current medications with the patient. Medication Sig Dispensed Refills Start Date End Date Status Ibuprofen (ADVIL) 200 MG CAPS Take by mouth. Prn Active lansoprazole (PREVACID) 30 MG capsule Take 30 mg by mouth daily before breakfast. Active Dougherty-3 Fatty Acids (FISH OIL) 1200 MG CAPS Take 1 Cap by mouth 2 times daily. Active BLACK COHOSH PO Take by mouth. 1 bid Active melatonin 3 MG tablet Take 3 mg by mouth at bedtime. Active vitamin D, ergocalciferol, (DRISDOL) 60566 UNITS capsule Take 1 Cap by mouth every 7 days. 13 Cap 3 10/22/2014 Active hydroxychloroquine (PLAQUENIL) 200 MG tablet Take 1 Tab by mouth 2 times daily. 60 Tab 3 10/22/2014 Active hydrocodone-acetaminop hen (NORCO) 5-325 MG tablet Take 1 Tab by mouth 3 times daily as needed for Pain. 40 Tab 0 10/22/2014 Active buPROPion SR 12hr (WELLBUTRIN-SR) 150 MG tablet TAKE 1 TABLET BY MOUTH ONCE DAILY 30 Tab 2 01/05/2015 Active carisoprodol (SOMA) 350 MG tablet TAKE 1 1/2 TABLETS BY MOUTH EVERY NIGHT AT BEDTIME 45 Tab 0 02/11/2015 Active Active Problems Problem Noted Date Diagnosed Date Esophageal stricture 03/15/2010 Overview (03/15/2010): Dilated 2009 Dr. Werner Rheumatoid arthritis 11/10/2008 Overview (03/27/2015): Dx made by Dr. Rincon on 01/2001 based on stiffness; swollen knees; RF 256; ESR 31. Treated with low dose prednisone/ MTX. Brief trials of azathioprine/ Plaquenil. Added Orencia 2006; stopped 2007 due to cost. MTX stopped late did OK on Plaquenil alone. Unsuccessful attempts at tapering dose. Sjogren's syndrome 11/10/2008 Overview (01/25/2011): COURTNEY 1:320 Speckled on 01/2011. Social History Tobacco Use Types Packs/Day Years Used Date Smoking Tobacco: Former Cigarettes 0 10/23/1975 - 10/23/1995 Alcohol Use Standard Drinks/Week Comments No 0 (1 standard drink = 0.6 oz pur e alcohol) Sex and Gender Information Value Date Recorded Sex Assigned at Not on file Gender Identity Not on file Sexual Orientation Not on file Last Filed Vital Signs Vital Sign Reading Time Taken Comments Blood Pressure 144/80 10/22/2014 2:39 PM CDT Pulse 96 10/22/2014 2:39 PM CDT Temperature - - Respiratory Rate - - Oxygen Saturation - - Inhaled Oxygen Concentration - - Weight 78 kg (172 lb) 10/22/2014 2:39 PM CDT Height 152.4 cm (5') 10/22/2014 2:39 PM CDT Body Mass Index 33.59 10/22/2014 2:39 PM CDT Plan of Treatment Health Maintenance Due Date Last Done Comments BONE DENSITY TESTING 1950 COLOGUARD (AGES 45-75) - COL ON CA SCREENING 1950 COLON MONITORING 1950 COLONOSCOPY - COLON CA SCREENING 1950 CT COLONOGRAPHY - COLON CA SCREENING 1950 Colorectal Cancer Screening 1950 FIT - COLON CA SCREENING 1950 FLEX SIG - COLON CA SCREENING 1950 MAMMOGRAM 1950 HEPATITIS C SCREENING 06/04/1969 DTAP/TDAP/TD VACCINES (1 - Tdap) 1970 PNEUMOCOCCAL VACCINE 50+ (1 of 1 - PCV) 2001 ZOSTER VACCINE (1 of 2) 2001 LIPID TESTING 10/23/2019 10/22/2014 COVID-19 VACCINE (1 - 2023-2 5 season) 2024 INFLUENZA VACCINE (#1) 2024 DEPRESSION SCREENING 05/20/2024 Respiratory Syncytial Virus (RSV) Vaccine Pt: or over 60 yrs (1 - 1-dose 75+ series) 2026 HEPATITIS B VACCINE Aged Out No longe r eligible based on patient's age to complete this topic HIB VACCINE Aged Out No longer eligi ble based on patient's age to complete this topic HPV VACCINE Aged Out No longer eligi ble based on patient's age to complete this topic MENINGOCOCCAL (Group B) VACC INE SHARED DECISION-MAKING Aged Out No longer eligibl e based on patient's age to complete this topic MENINGOCOCCAL GROUPS A/C/Y/W VACCINE Aged Out No longer eligible b ased on patient's age to complete this topic Procedures Procedure Name Priority Date/Time Associated Diagnosis Comments LIPID PROFILE Routine 10/22/2014 3:10 PM CDT Pure hypercholesterolemia from Last 3 Months or Most Recently Relevant to Health Maintenance Results * (ABNORMAL) LIPID PROFILE (10/22/2014 3:10 PM CDT) Cholesterol 191 100 - 199 mg/dL [facility] ACCOUNT BILL Triglycerides 90 0 - 149 mg/dL [facility] ACCOUNT BILL HDL Cholesterol 52 >39 mg/dL [facility] ACCOUNT BILL Comment: According to ATP-III Guidelines, HDL-C >59 mg/dL is considered a negative risk factor for CHD. VLDL Calculated 18 5 - 40 mg/dL [facility] ACCOUNT BILL LDL Calculated 121(H) 0 - 99 mg/dL [facility] ACCOUNT BILL Comment NOT NEEDED [facility] ACCOUNT BILL Comment:Ancillary determined the test is not needed Blood specimen (specimen) BLOOD SPECIMEN / Unknown 10/22/2014 3:10 PM CDT 10/22/2014 9:25 PM CDT Narrative Resulting Agency Comment [facility] [address] [id number] Carlos Rincon MD LAB - CHEMISTRY O RDERABLES [facility] ACCOUNT BILL from Last 3 Months or Most Recently Relevant to Health Maintenance Care Teams Screw Machine Set Up Operator Relationship Specialty Start Date End Date Ruben Meredith MD PCP - General 03/13/09
== END 2024-08-14 10:15 | disposition home or self-care (01) ==
PROVIDERS: PCP Internal Medicine; Visit Provider Internal Medicine
DX: R05.9 Cough, unspecified (principal); R91.8 Other nonspecific abnormal finding of lung field
CPT/HCPCS: 71046

== ENCOUNTER 2024-09-15 10:10 | Outpatient (CLI) | payer MEDICARE, SELFPAY ==
--- NOTE | ~2024-09-15 | CT_ITS ---
CT Scan of the Chest without Contrast: Clinical Indication: Chronic cough Technique: Contiguous sections were acquired throughout the chest without intravenous contrast. Dose reduction technique was used on this scan by utilizing automated exposure control and iterative recon struction technique. The dose-length product (DLP) was 118.67 mGy-cm. Findings: There is no evidence of any significant mediastinal, hilar or axillary lymphadenopathy. Extensive cor onary artery calcification present. There is no evidence of pleural or pericardial effusion. 3 mm right lower lobe nodule present (axial image 59). Calcified right lower lobe granuloma present. There is focal left basilar scarring and bronchiolectasis. 5 mm left upper lobe nodule present (axial image 32). Images through the upper abdomen reveal 2.7 cm right adrenal nodule. Impression: Subcentimeter pulmonary nodules, as above. According to Fleischner Society criteria, for a low-risk p atient, no further follow-up required. For a high-risk patient, consider 12 month follow-up CT. 2.7 cm right adrenal nodule, most likely adenoma. Recommend follow-up MR to confirm. Reviewed, dictated and finalized at location . Impression: Subcentimeter pulmonary nodules, as above. According to Fleischner Society jaclynt tejas, for a low-risk patient, no further follow-up required. For a high-risk pa tient, consider 12 month follow-up CT. 2.7 cm right adrenal nodule, most likely adenoma. Recommend follow-up MR to con firm.
--- OUTSIDE RECORDS SUMMARY | 2024-09-15 11:24 | XMS_ITS | Clinical Summary ---
Author Organization [facility] Address [address] [facility] [place] [address] Care Team Providers Care Explosives Truck Driver Name Role Phone Ruben Meredith MD Primary Care Provider [phone] Source Comments [facility],non-owned Affiliates and Associated Physician Practices is amultiple site organization consisting of ambulatory clinics and hospital sitesin [place], [place], [place] and [place]. This disclosure is being madepursuant to the Care Everywhere program and may not contain all information available regarding this patient. Last updated 18.[facility] Allergies No known active allergies Medications * Be aware that medications may not be up to date on this document. Alwaysverify current medications with the patient. Ibuprofen (ADVIL) 200 MG CAPS Take by mouth. Prn Active lansoprazole (PREVACID) 30 MG capsule Take 30 mg by mouth daily before breakfast. Active [place]-3 Fatty Acids (FISH OIL) 1200 MG CAPS Take 1 Cap by mouth 2 times daily. Active BLACK COHOSH PO Take by mouth. 1 bid Active melatonin 3 MG tablet Take 3 mg by mouth at bedtime. Active vitamin D, ergocalciferol, (DRISDOL) 60450 UNITS capsule Take 1 Cap by mouth every 7 days. 13 Cap 3 10/22/2014 Active hydroxychloroqu ine (PLAQUENIL) 200 MG tablet Take 1 Tab by mouth 2 times daily. 60 Tab 3 10/22/2014 Active hydrocodone-darcy taminophen (NORCO) 5-325 MG tablet Take 1 Tab [...] drink = 0.6 oz pur e alcohol) Comments No Sex and Gender Information Value Date Recorded Sex Assigned at Not on file Legal Sex Female 4:32 AM INDUSTRIAL CUSTODIAN Gender Identity Not on file Sexual Orientation [...] VACCINE (1 - 2023-2 5 season) 2024 DEPRESSION SCREENING 05/20/2024 INFLUENZA VACCINE (Season Ended) 2025 Respiratory Syncytial Virus (RSV) Vaccine Pt: or [...] PM CDT Narrative Resulting Agency Comment [facility] [address] [facility] [phone] Carlos Rincon MD LAB - CHEMISTRY ORDERABLE S Final Result [facility] ACCOUNT BILL [address] [place] [address] from Last 3 Months or Most Recently Relevant to Health Maintenance Insurance Care Teams Explosives Truck Driver Relationship Specialty Start Date End Date Ruben Meredith MD PCP - General 03/13/09
--- OUTSIDE RECORDS SUMMARY | 2024-09-15 11:24 | XMS_ITS | Data Portability ---
Author Organization [place] - [facility] [employer], Main Office Address [address] [place] [address] Assessment Encounter Date Assessment Date Assessment LastModified by Organization Details LastModified Time 11/16/2022 11/16/2022 Get the recommended adrenal CT upper lower endoscopy results have been reviewed follow-up with me in 6-8 week [email or web address] Not available 11/17/2022 21:52:37 03/04/2023 03/04/2023 X-ray the neck she will see me in 4 months will continue other therapy [email or web address] Not available 03/04/2023 14:08:43 Plan of Treatment Reminders Order Date Submit Date Provider Last Modified By Organization Details Last Modified Time Details Appointments None recorded. Lab None recorded. Referral None recorded. Procedures None recorded. Surgeries None recorded. Imaging XR, cervical spine [address] [facility] ([facility]), [address] [place], [address], 09:20:20 Medication Orders None recorded. Patient TargetsNo targets recorded. Patient InstructionsNo instructions recorded. Reason for Referral None Reported. Results Created Date Observation Date Name Description Value Unit Range Abnormal Flag Note LastModifiedBy Organization Detail LastModifiedTime 01/16/20 22 01/15/2022 COMPR EHENS MARK METAB OLIC PANEL carbon dioxide 23 mmol/ L 22-30 Not Available [facility] (Lab) [address] [place], [address], 01/15/2022 20:24:46 01/16/20 22 01/15/2022 COMPR EHENS MARK METAB OLIC PANEL sodium 138 mmol/ L 137-14 5 Not Available [facility] (Lab) [address] [place], [address], 01/15/2022 20:24:46 01/16/20 22 01/15/2022 COMPR EHENS MARK METAB OLIC PANEL potassium 4.8 mmol/ L 3.5-5. 1 Not Available [facility] (Lab) [address] [place], [address], 01/15/2022 20:24:46 01/16/20 22 01/15/2022 COMPR EHENS MARK METAB OLIC PANEL chloride 105 mmol/ L 98-107 Not Available [facility] (Lab) [address] [place], [address], 01/15/2022 20:24:46 01/16/20 22 01/15/2022 COMPR EHENS MARK METAB OLIC PANEL anion gap 14.8 mmol/ L 14-22 Not Available [facility] (Lab) [address] [place], [address], 01/15/2022 20:24:46 01/16/20 22 01/15/2022 COMPR EHENS MARK METAB OLIC PANEL glucose 97 mg/dL 70-99 Not Available [facility] (Lab) [address] [place], [address], 01/15/2022 20:24:46 01/16/20 22 01/15/2022 COMPR EHENS MARK METAB OLIC PANEL BUN 18 mg/dL 8-19 Not Available [facility] (Lab) [address] [place], [address], 01/15/2022 20:24:46 01/16/20 22 01/15/2022 COMPR EHENS MARK METAB OLIC PANEL creatinine 0.80 mg/dL 0.66-1 .25 Not Available [facility] (Lab) [address] [place], [address], 01/15/2022 20:24:46 01/16/20 22 01/15/2022 COMPR EHENS MARK METAB OLIC PANEL GFR >60 Refer ence Range : [place] GFR Healt hy Adult : >60 [...] calcu lator is avail able on the [facility] websi te: https :[email or web address] michael/pr ofess ional s/kdo qi/gf r_cal culat or Not Available [facility] (Lab) [address] [place], [address], 01/15/2022 20:24:46 01/16/20 22 01/15/2022 COMPR EHENS MARK METAB OLIC PANEL alkaline phosphatase 72 U/L 38-126 Not Available [facility] (Lab) [address] [place], [address], 01/15/2022 20:24:46 01/16/20 22 01/15/2022 COMPR EHENS MARK METAB OLIC PANEL alanine aminotransfe rase 28 U/L 0-35 Not Available [facility] (Lab) [address] [place], [address], 01/15/2022 20:24:46 01/16/20 22 01/15/2022 COMPR EHENS MARK METAB OLIC PANEL aspartate aminotransfe rase 35 U/L 15-37 Not Available [facility] (Lab) [address] [place], [address], 01/15/2022 20:24:46 01/16/20 22 01/15/2022 COMPR EHENS MARK METAB OLIC PANEL bilirubin, total 0.40 mg/dL 0.20-1 .30 Not Available [facility] (Lab) [address] [place], [address], 01/15/2022 20:24:46 01/16/20 22 01/15/2022 COMPR EHENS MARK METAB OLIC PANEL calcium 9.8 mg/dL 8.4-10 .2 Not Available [facility] (Lab) [address] [place], [address], 01/15/2022 20:24:46 01/16/20 22 01/15/2022 COMPR EHENS MARK METAB OLIC PANEL total protein 7.5 g/dL 6.3-8. 2 Not Available [facility] (Lab) [address] [place], [address], 01/15/2022 20:24:46 01/16/20 22 01/15/2022 COMPR EHENS MARK METAB OLIC PANEL albumin 4.5 g/dL 3.0-4. 4 high Not Available [facility] (Lab) [address] [place], [address], 01/15/2022 20:24:46 01/16/20 22 01/15/2022 COMPR EHENS MARK METAB OLIC PANEL globulin 3.0 g/dL 2.6-4. 2 Not Available [facility] (Lab) [address] [place], [address], 01/15/2022 20:24:46 01/16/20 22 01/15/2022 COMPR EHENS MARK METAB OLIC PANEL A/G ratio 1.5 ratio 1.0-2. 0 Not Available [facility] (Lab) [address] [place], [address], 01/15/2022 20:24:46 01/16/20 22 01/15/2022 LIPID PANEL [...] WILL NOT BE REPOR BABITA. Not Available [facility] (Lab) [address] [place], [address], 01/15/2022 18:19:41 01/16/20 22 01/15/2022 LIPID PANEL cholesterol 197 mg/dL 140-19 9 [facility] MIKI NSUS RECOM MENDA TION FOR CHRISTOPHER STERO L: ADULT CHILD LOW RISK: <200 <170 BORDE RLINE : <200- 239 ----- HIGH RISK: >240 >200 Not Available [facility] (Lab) [address] [place], [address], 01/15/2022 18:19:41 01/16/20 22 01/15/2022 LIPID PANEL triglyceride s 134 mg/dL 0-150 NIH MIKI NSUS REPOR T RECOM MENDA TION FOR TRIGL YCERI NORMA: ADULT CHILD LOW RISK: <150 ----- BODER LINE: 150-1 99 ----- HIGH RISK: >200 ----- Not Available [facility] (Lab) [address] [place], [address], 01/15/2022 18:19:41 01/16/20 22 01/15/2022 LIPID PANEL HDL cholesterol 47 mg/dL 40- Not Available [facility] (Lab) [address] [place], [address], 01/15/2022 18:19:41 01/16/20 22 01/15/2022 CBC/C OMPLE TE BLD COUNT W/DIF F lymphocytes 33.3 % 16.0-4 7.0 Not Available [facility] (Lab) [address] [place], [address], 01/15/2022 17:04:14 01/16/20 22 01/15/2022 CBC/C OMPLE TE BLD COUNT W/DIF F white blood cells 5.8 x10'3 /uL 4.2-10 .8 Not Available [facility] (Lab) [address] [place], [address], 01/15/2022 17:04:14 01/16/20 22 01/15/2022 CBC/C OMPLE TE BLD COUNT W/DIF F red blood cells 4.64 x10'6 /uL 3.80-5 .20 Not Available [facility] (Lab) [address] [place], [address], 01/15/2022 17:04:14 01/16/20 22 01/15/2022 CBC/C OMPLE TE BLD COUNT W/DIF F hemoglobin 14.1 g/dL 12.0-1 5.6 Not Available [facility] (Lab) [address] [place], [address], 01/15/2022 17:04:14 01/16/20 22 01/15/2022 CBC/C OMPLE TE BLD COUNT W/DIF F hematocrit 44.0 % 35.7-4 5.7 Not Available [facility] (Lab) [address] [place], [address], 01/15/2022 17:04:14 01/16/20 22 01/15/2022 CBC/C OMPLE TE BLD COUNT W/DIF F mean red cell volume 94.8 fL 82.0-9 9.0 Not Available [facility] (Lab) [address] [place], [address], 01/15/2022 17:04:14 01/16/20 22 01/15/2022 CBC/C OMPLE TE BLD COUNT W/DIF F mean red cell hemoglobin 30.4 pg 27.0-3 3.0 Not Available [facility] (Lab) [address] [place], [address], 01/15/2022 17:04:14 01/16/20 22 01/15/2022 CBC/C OMPLE TE BLD COUNT W/DIF F mean RBC HGB concentratio n 32.0 g/dL 31.0-3 6.0 Not Available [facility] (Lab) [address] [place], [address], 01/15/2022 17:04:14 01/16/20 22 01/15/2022 CBC/C OMPLE TE BLD COUNT W/DIF F red cell distribution width 12.9 % 11.8-1 5.5 Not Available [facility] (Lab) [address] [place], [address], 01/15/2022 17:04:14 01/16/20 22 01/15/2022 CBC/C OMPLE TE BLD COUNT W/DIF F platelets 224 x10'3 /uL 150-40 0 Not Available [facility] (Lab) [address] [place], [address], 01/15/2022 17:04:14 01/16/20 22 01/15/2022 CBC/C OMPLE TE BLD COUNT W/DIF F mean platelet volume 10.2 fL 9.0-12 .4 Not Available [facility] (Lab) [address] [place], [address], 01/15/2022 17:04:14 01/16/20 22 01/15/2022 CBC/C OMPLE TE BLD COUNT W/DIF F neutrophils 54.5 % 39.0-7 2.0 Not Available [facility] (Lab) [address] [place], [address], 01/15/2022 17:04:14 01/16/20 22 01/15/2022 CBC/C OMPLE TE BLD COUNT W/DIF F monocytes 10.2 % 5.0-12 .0 Not Available [facility] (Lab) [address] [place], [address], 01/15/2022 17:04:14 01/16/20 22 01/15/2022 CBC/C OMPLE TE BLD COUNT W/DIF F neutrophils, absolute count 3.14 x10'3 /uL 1.5-8. 0 Not Available [facility] (Lab) [address] [place], [address], 01/15/2022 17:04:14 01/16/20 22 01/15/2022 CBC/C OMPLE TE BLD COUNT W/DIF F eosinophils 1.4 % 1.0-7. 0 Not Available [facility] (Lab) [address] [place], [address], 01/15/2022 17:04:14 01/16/20 22 01/15/2022 CBC/C OMPLE TE BLD COUNT W/DIF F basophils 0.3 % 0.0-2. 0 Not Available [facility] (Lab) [address] [place], [address], 01/15/2022 17:04:14 01/16/20 22 01/15/2022 CBC/C OMPLE TE BLD COUNT W/DIF F immature granulocytes 0.3 % 0.00-0 .50 Not Available [facility] (Lab) [address] [place], [address], 01/15/2022 17:04:14 01/16/20 22 01/15/2022 CBC/C OMPLE TE BLD COUNT W/DIF F lymphocytes, absolute count 1.92 x10'3 /uL 1.07-3 .43 Not Available [facility] (Lab) [address] [place], [address], 01/15/2022 17:04:14 01/16/20 22 01/15/2022 CBC/C OMPLE TE BLD COUNT W/DIF F monocytes, absolute count 0.59 x10'3 /uL 0.29-0 .99 Not Available [facility] (Lab) [address] [place], [address], 01/15/2022 17:04:14 01/16/20 22 01/15/2022 CBC/C OMPLE TE BLD COUNT W/DIF F eosinophils, absolute count 0.08 x10'3 /uL 0.02-0 .53 Not Available [facility] (Lab) [address] [place], [address], 01/15/2022 17:04:14 01/16/20 22 01/15/2022 CBC/C OMPLE TE BLD COUNT W/DIF F basophils, absolute count 0.02 x10'3 /uL 0.01-0 .08 Not Available [facility] (Lab) [address] [place], [address], 01/15/2022 17:04:14 01/16/20 22 01/15/2022 CBC/C OMPLE TE BLD COUNT W/DIF F immature granulocytes ,absolute 0.02 x10'3 /uL 0.00-0 .05 Not Available [facility] (Lab) [address] [place], [address], 01/15/2022 17:04:14 01/16/20 22 01/15/2022 CBC/C OMPLE TE BLD COUNT W/DIF F nucleated red blood cells 0.0 % -0 Not Available [facility] (Lab) [address] [place], [address], 01/15/2022 17:04:14 01/16/20 22 01/15/2022 CBC/C OMPLE TE BLD COUNT W/DIF F NRBC# 0.00 x10'3 /uL Not Available [facility] (Lab) [address] [place], [address], 01/15/2022 17:04:14 11/13/19 23 11/12/2022 BUN/B LOOD UREA NITRO GEN BUN 13 mg/dL 8-19 Not Available [facility] (Lab) [address] [place], [address], 11/12/2022 10:23:50 11/13/19 23 11/12/2022 CREAT ININE creatinine 0.76 mg/dL 0.66-1 .25 Not Available [facility] (Lab) [address] [place], [address], 11/12/2022 10:23:53 11/13/19 23 11/12/2022 CREAT ININE GFR >60 Refer ence Range : [place] GFR Healt hy Adult : >60 [...] s/kdo qi/gf r_cal culat or Not Available [facility] (Lab) [address] [place], [address], 11/12/2022 10:23:53 08/14/19 24 08/14/2023 CBC/C OMPLE TE BLD COUNT W/DIF F white blood cells 5.9 x10'3 /uL 4.2-10 .8 Not Available [facility] (Lab) [address] [place], [address], 08/14/2023 15:47:55 08/14/19 24 08/14/2023 CBC/C OMPLE TE BLD COUNT W/DIF F red blood cells 4.65 x10'6 /uL 3.80-5 .20 Not Available [facility] (Lab) [address] [place], [address], 08/14/2023 15:47:55 08/14/19 24 08/14/2023 CBC/C OMPLE TE BLD COUNT W/DIF F hemoglobin 14.4 g/dL 12.0-1 5.6 Not Available [facility] (Lab) [address] [place], [address], 08/14/2023 15:47:55 08/14/19 24 08/14/2023 CBC/C OMPLE TE BLD COUNT W/DIF F hematocrit 43.7 % 35.7-4 5.7 Not Available [facility] (Lab) [address] [place], [address], 08/14/2023 15:47:55 08/14/19 24 08/14/2023 CBC/C OMPLE TE BLD COUNT W/DIF F mean red cell volume 94.0 fL 82.0-9 9.0 Not Available [facility] (Lab) [address] [place], [address], 08/14/2023 15:47:55 08/14/19 24 08/14/2023 CBC/C OMPLE TE BLD COUNT W/DIF F mean red cell hemoglobin 31.0 pg 27.0-3 3.0 Not Available [facility] (Lab) [address] [place], [address], 08/14/2023 15:47:55 08/14/19 24 08/14/2023 CBC/C OMPLE TE BLD COUNT W/DIF F mean RBC HGB concentratio n 33.0 g/dL 31.0-3 6.0 Not Available [facility] (Lab) [address] [place], [address], 08/14/2023 15:47:55 08/14/19 24 08/14/2023 CBC/C OMPLE TE BLD COUNT W/DIF F red cell distribution width 12.8 % 11.8-1 5.5 Not Available [facility] (Lab) [address] [place], [address], 08/14/2023 15:47:55 08/14/19 24 08/14/2023 CBC/C OMPLE TE BLD COUNT W/DIF F platelets 186 x10'3 /uL 150-40 0 Not Available [facility] (Lab) [address] [place], [address], 08/14/2023 15:47:55 08/14/19 24 08/14/2023 CBC/C OMPLE TE BLD COUNT W/DIF F mean platelet volume 10.0 fL 9.0-12 .4 Not Available [facility] (Lab) [address] [place], [address], 08/14/2023 15:47:55 08/14/19 24 08/14/2023 CBC/C OMPLE TE BLD COUNT W/DIF F neutrophils 64.2 % 39.0-7 2.0 Not Available [facility] (Lab) [address] [place], [address], 08/14/2023 15:47:55 08/14/19 24 08/14/2023 CBC/C OMPLE TE BLD COUNT W/DIF F lymphocytes 24.9 % 16.0-4 7.0 Not Available [facility] (Lab) [address] [place], [address], 08/14/2023 15:47:55 08/14/19 24 08/14/2023 CBC/C OMPLE TE BLD COUNT W/DIF F monocytes 8.4 % 5.0-12 .0 Not Available [facility] (Lab) [address] [place], [address], 08/14/2023 15:47:55 08/14/19 24 08/14/2023 CBC/C OMPLE TE BLD COUNT W/DIF F eosinophils 1.5 % 1.0-7. 0 Not Available [facility] (Lab) [address] [place], [address], 08/14/2023 15:47:55 08/14/19 24 08/14/2023 CBC/C OMPLE TE BLD COUNT W/DIF F basophils 0.7 % 0.0-2. 0 Not Available [facility] (Lab) [address] [place], [address], 08/14/2023 15:47:55 08/14/19 24 08/14/2023 CBC/C OMPLE TE BLD COUNT W/DIF F immature granulocytes 0.3 % 0.00-0 .50 Not Available [facility] (Lab) [address] [place], [address], 08/14/2023 15:47:55 08/14/19 24 08/14/2023 CBC/C OMPLE TE BLD COUNT W/DIF F neutrophils, absolute count 3.81 x10'3 /uL 1.5-8. 0 Not Available [facility] (Lab) [address] [place], [address], 08/14/2023 15:47:55 08/14/19 24 08/14/2023 CBC/C OMPLE TE BLD COUNT W/DIF F lymphocytes, absolute count 1.48 x10'3 /uL 1.07-3 .43 Not Available [facility] (Lab) [address] [place], [address], 08/14/2023 15:47:55 08/14/19 24 08/14/2023 CBC/C OMPLE TE BLD COUNT W/DIF F monocytes, absolute count 0.50 x10'3 /uL 0.29-0 .99 Not Available [facility] (Lab) [address] [place], [address], 08/14/2023 15:47:55 08/14/19 24 08/14/2023 CBC/C OMPLE TE BLD COUNT W/DIF F eosinophils, absolute count 0.09 x10'3 /uL 0.02-0 .53 Not Available [facility] (Lab) [address] [place], [address], 08/14/2023 15:47:55 08/14/19 24 08/14/2023 CBC/C OMPLE TE BLD COUNT W/DIF F basophils, absolute count 0.04 x10'3 /uL 0.01-0 .08 Not Available [facility] (Lab) [address] [place], [address], 08/14/2023 15:47:55 08/14/19 24 08/14/2023 CBC/C OMPLE TE BLD COUNT W/DIF F immature granulocytes ,absolute 0.02 x10'3 /uL 0.00-0 .05 Not Available [facility] (Lab) [address] [place], [address], 08/14/2023 15:47:55 08/14/19 24 08/14/2023 CBC/C OMPLE TE BLD COUNT W/DIF F nucleated red blood cells 0.0 % -0 Not Available [facility] (Lab) [address] [place], [address], 08/14/2023 15:47:55 08/14/19 24 08/14/2023 CBC/C OMPLE TE BLD COUNT W/DIF F NRBC# 0.00 x10'3 /uL Not Available [facility] (Lab) [address] [place], [address], 08/14/2023 15:47:55 08/14/19 24 08/14/2023 LIPID PANEL cholesterol 151 mg/dL 140-19 9 NIH MIKI NSUS RECOM MENDA TION FOR CHRISTOPHER STERO L: ADULT CHILD LOW RISK: <200 <170 BORDE RLINE : <200- 239 ----- HIGH RISK: >240 >200 Not Available [facility] (Lab) [address] [place], [address], 08/14/2023 16:06:16 08/14/19 24 08/14/2023 LIPID PANEL triglyceride s 132 mg/dL 0-150 NIH MIKI NSUS REPOR T RECOM MENDA TION FOR TRIGL YCERI NORMA: ADULT CHILD LOW RISK: <150 ----- BODER LINE: 150-1 99 ----- HIGH RISK: >200 ----- Not Available [facility] (Lab) [address] [place], [address], 08/14/2023 16:06:16 08/14/19 24 08/14/2023 LIPID PANEL HDL cholesterol 53 mg/dL 40- Not Available [facility] (Lab) [address] [place], [address], 08/14/2023 16:06:16 08/14/19 24 08/14/2023 LIPID PANEL [...] WILL NOT BE REPOR BABITA. Not Available [facility] (Lab) [address] [place], [address], 08/14/2023 16:06:16 08/14/19 24 08/14/2023 COMPR EHENS MARK METAB OLIC PANEL sodium 139 mmol/ L 137-14 5 Not Available [facility] (Lab) [address] [place], [address], 08/14/2023 16:06:27 08/14/19 24 08/14/2023 COMPR EHENS MARK METAB OLIC PANEL potassium 4.2 mmol/ L 3.5-5. 1 Not Available [facility] (Lab) [address] [place], [address], 08/14/2023 16:06:27 08/14/19 24 08/14/2023 COMPR EHENS MARK METAB OLIC PANEL chloride 105 mmol/ L 98-107 Not Available [facility] (Lab) [address] [place], [address], 08/14/2023 16:06:27 08/14/19 24 08/14/2023 COMPR EHENS MARK METAB OLIC PANEL carbon dioxide 27 mmol/ L 22-30 Not Available [facility] (Lab) [address] [place], [address], 08/14/2023 16:06:27 08/14/19 24 08/14/2023 COMPR EHENS MARK METAB OLIC PANEL anion gap 11.2 mmol/ L 14-22 low Not Available [facility] (Lab) [address] [place], [address], 08/14/2023 16:06:27 08/14/19 24 08/14/2023 COMPR EHENS MARK METAB OLIC PANEL glucose 114 mg/dL 70-99 high Not Available [facility] (Lab) [address] [place], [address], 08/14/2023 16:06:27 08/14/19 24 08/14/2023 COMPR EHENS MARK METAB OLIC PANEL BUN 11 mg/dL 8-19 Not Available [facility] (Lab) [address] [place], [address], 08/14/2023 16:06:27 08/14/19 24 08/14/2023 COMPR EHENS MARK METAB OLIC PANEL creatinine 0.80 mg/dL 0.66-1 .25 Not Available [facility] (Lab) [address] [place], [address], 08/14/2023 16:06:27 08/14/19 24 08/14/2023 COMPR EHENS MARK METAB OLIC PANEL GFR >60 Refer ence Range : [place] GFR Healt hy Adult : >60 [...] calcu latkrystin is avail able on the [facility] websi te: https :[email or web address] rg/pr ofess ional s/kdo qi/gf r_cal culat or Not Available [facility] (Lab) [address] [place], [address], 08/14/2023 16:06:27 08/14/19 24 08/14/2023 COMPR EHENS MARK METAB OLIC PANEL alkaline phosphatase 65 U/L 38-126 Not Available [facility] (Lab) [address] [place], [address], 08/14/2023 16:06:27 08/14/19 24 08/14/2023 COMPR EHENS MARK METAB OLIC PANEL alanine aminotransfe rase 33 U/L 0-35 Not Available [facility] (Lab) [address] [place], [address], 08/14/2023 16:06:27 08/14/19 24 08/14/2023 COMPR EHENS MARK METAB OLIC PANEL aspartate aminotransfe rase 40 U/L 15-37 high Not Available [facility] (Lab) [address] [place], [address], 08/14/2023 16:06:27 08/14/19 24 08/14/2023 COMPR EHENS MARK METAB OLIC PANEL bilirubin, total 0.60 mg/dL 0.20-1 .30 Not Available [facility] (Lab) [address] [place], [address], 08/14/2023 16:06:27 08/14/19 24 08/14/2023 COMPR EHENS MARK METAB OLIC PANEL calcium 10.0 mg/dL 8.4-10 .2 Not Available [facility] (Lab) [address] [place], [address], 08/14/2023 16:06:27 08/14/19 24 08/14/2023 COMPR EHENS MARK METAB OLIC PANEL total protein 7.6 g/dL 6.3-8. 2 Not Available [facility] (Lab) [address] [place], [address], 08/14/2023 16:06:27 08/14/19 24 08/14/2023 COMPR EHENS MARK METAB OLIC PANEL albumin 4.5 g/dL 3.0-4. 4 high Not Available [facility] (Lab) [address] [place], [address], 08/14/2023 16:06:27 08/14/19 24 08/14/2023 COMPR EHENS MARK METAB OLIC PANEL globulin 3.1 g/dL 2.6-4. 2 Not Available [facility] (Lab) [address] [place], [address], 08/14/2023 16:06:27 08/14/19 24 08/14/2023 COMPR EHENS MARK METAB OLIC PANEL A/G ratio 1.5 ratio 1.0-2. 0 Not Available [facility] (Lab) [address] [place], [address], 08/14/2023 16:06:27 08/24/19 22 06/23/2021 colon oscop y scree delilah (PROC ) No observ ation record ed. [id number] Cammy Guidry MD [address], [place], [address], 07/18/2022 06:20:03 11/13/19 23 11/12/2022 CT, abdom en + pelvi s, w/ contr ast [facility] [address] [place] [address] [facility] DAISY [facility]RICH Access ion #: [id number] Sex: F : 1950 3 Locati [...] 300 intrav enous Page 1 of 4 [facility] Name[facility] DAISY GOODRICH Access ion #: [id number] Sex: F : 1950 3 Exam [...] the large colon Page 2 of 4 [facility] t Name: DAISY GOODRICH Access ion #: [id number] Sex: F : 1950 3 Exam [...] le vesico sarah. Page 3 of 4 [facility] t Name: DAISY GOODRICH Access ion #: [id number] Sex: F : 1950 3 Exam [...] 11:53 AM (CT) Page 4 of 4 [email or web address] [facility] (Imaging) [address] [place], [address], 03/04/2023 11:04:28 12/18/19 23 12/17/2022 MAMMO , scree delilah, digit al, bilat eral [facility] [address] [place] [address] Patien t Name: DAISY GOODRICH Access ion #: [id number] Sex: F : 1950 6 Dictat [...] at 2022 12:38: 40 PM Page 1 [email or web address] [facility] (Imaging) [address] [place], [address], 03/04/2023 11:04:28 12/18/19 23 12/17/2022 CT, abdom en, w/o contr ast [facility] [address] [place] [address] Patien t Name: DAISY GOODRICH Access ion #: [id number] Sex: F : 1950 6 Dictat [...] y 10 Hounsf ield units. Page 1 [facility] [address] [place] [address] Patien t Name: DAISY GOODRICH Access ion #: [id number] Sex: F : 1950 6 Dictat ed By: Horacio Talley Attend ing Physic josé: AUSTIN RONQUILLO [facility] Physic josé: JUNIOR REGALADO Exam Date: 2022 [...] at 2022 17:54: 37 PM Page 2 [email or web address] [facility] (Imaging) [address] [place], [address], 03/04/2023 11:04:29 03/04/20 23 03/04/2023 XR, cervi stephanie spine [facility] [address] [place] [address] [phone] Patien t Name: DAISY GOODRICH Access ion #: [id number] Sex: F : 1950 6 Dictat [...] at 2022 10:53: 49 AM Page 1 [email or web address] [facility] (Imaging) [address] [place], [address], 04/20/2023 20:55:32 08/14/19 24 08/14/2023 XR, chest , 2 view [facility] [address] [place] [address] [phone] Patien t Name: DAISY GOODRICH Access ion #: [id number] Sex: F : 1950 0 Dictat [...] 2023 14:38: 45 PM Page 1 [email or web address] [facility] (Imaging) [address] [place], [address], 11/18/2023 09:36:37 02/27/20 24 02/27/2024 scree delilah breas t danial, bilat [facility] [address] [address] Patien t Name: DAISY GOODRICH Access ion #: [id number] Sex: F : 1950 3 Dictat [...] BIRADS : 2 - Benign Page 1 [facility] [address] [place] [address] [phone] Patien t Name: DAISY GOODRICH DanceTrippin ion #: [id number] Sex: F : 1950 3 Dictat ed By: Junior ng Attend ing Physic j[facility] JUNIOR REGALADO Exam Date: 2023 08:33 AM Exam Name: MG SCRN BREAST DANIAL BILAT Admitt ing Diagno sis(es ): Electr onical ly Signed by: Junior ng at 2023 07:13: 02 AM Page 2 [email or web address] [facility] (Imaging) [address] [place], [address], 03/04/2024 12:45:38 02/27/20 24 02/27/2024 D[facility], [facility] [address] [place] [address] [phone] Patien t Name: DAISY GOODRICH Access ion #: [id number] Sex: F : 1950 [facility] #: [id number] Dictat ed By: Junior ng Attend ing Physic josé: JUNIOR REGALADO [facility] Physic josé: JUNIOR REGALADO Exam Date: 2023 08:28 AM Exam Name: XR DEXA-H IPS PELVIS SPINE Admitt ing Diagno sis(es ): CLINIC AL HISTOR Y: postme nopaus al screen ing for osteop orosis . TECHNI QUE: The study was perfor med using a [employer]. Lumbar spine and proxim al femora [...] 2023 07:19: 57 AM Page 1 [email or web address] [facility] ([facility]) [address] [place], [address], 03/04/2024 12:45:39 Result Notes None recorded. Problems Name Problem SNOMED Code Status Onset Date Resolution Date Notes Provider Name and Address Organization Details Recorded Time Abdominal pain 04236468 Active Not Available [facility] 3 11:43:55 Gastroeso phageal reflux disease without esophagit is 558117434 Active 2018 Not Available [facility] 3 11:43:55 Current tear of medial cartilage AND/OR meniscus of knee Active Not Available [facility] 3 11:43:55 Current tear of lateral cartilage AND/OR meniscus of knee Active Not Available [facility] 3 11:43:55 Hepatitis C antibody detected 032703040 Active Not Available [facility] 3 11:43:55 Depressiv e disorder 95029421 Active 2021 Not Available [facility] 3 11:43:55 Vertigo 511123269 Active Not Available [facility] 3 11:43:55 Anxiety 99492897 Active 2021 Not Available [facility] 3 11:43:55 Upper respirato ry infection 42380484 Active 2021 Not Available [facility] 3 11:43:55 Hyperlipi demia 98975455 Active 2021 Not Available [facility] 3 11:43:55 Polyp of colon 44284686 Active 2017 Not Available [facility] 3 11:43:55 Rheumatoi d arthritis 07386097 Active 2017 Not Available [facility] 3 11:43:55 Gastric polyp 18208670 Active 2021 endoscopy June 2021 Not Available [facility] 3 11:43:55 Cough 74745407 Active 2022 Not Available [facility] 3 11:43:55 CT of abdomen abnormal 46716406178 612844 Active 2022 Not Available [facility] 3 11:43:55 Neck pain 39760490 Active 2022 Not Available [facility] 3 11:43:55 Problem Notes None recorded. Procedures Surgical History Date Name Laterality Status Provider Name and Address Organization Details Recorded Time 06/23/19 22 Colonoscopy completed Not Available [facility] 07/18/2022 06:00:07 12/27/19 19 Knee arthroscopy/surger y completed Not Available [facility] 07/18/2022 06:00:07 07/23/19 19 Cholecystectomy completed Not Available [facility] 07/18/2022 06:00:07 03/14/20 16 Colonoscopy completed Not Available [facility] 07/18/2022 06:00:07 Breast Biopsy completed Not Available [facility] 07/18/2022 06:00:07 Hysterectomy, Partial completed Not Available [facility] 07/18/2022 06:00:07 other completed Not Available [facility] 07/18/2022 06:00:07 Imaging Results Imaging Date Name Status LastModified by Organiz ation Details LastModified Time 06/23/2021 colonoscopy screening (PROC) completed [id number] Cammy Guidry MD [address] [facility] [address], [place], [address], 07/18/2022 06:20:03 11/12/2022 CT, abdomen + pelvis, w/ contrast completed [email or web address] [facility] (Imaging) [address] [place], [address], 03/04/2023 11:04:28 12/17/2022 MAMMO, screening, digital, bilateral completed [email or web address] [facility] (Imaging) [address] [place], [address], 03/04/2023 11:04:28 12/17/2022 CT, abdomen, w/o contrast completed [email or web address] [facility] (Imaging) [address] [place], [address], 03/04/2023 11:04:29 03/04/2023 XR, cervical spine completed [facility] (Imaging) [address] [place], [address], 04/20/2023 20:55:32 08/14/2023 XR, chest, 2 [email or web address] ([facility]) [address] [place], [address], 11/18/2023 09:36:37 02/27/2024 screening breast danial, bilat [email or web address] (Imaging) [address] [place], [address], 03/04/2024 12:45:38 02/27/2024 DEXA, axial skeleton completed [address] (Imaging) [address] [place], [address], 03/04/2024 12:45:39 Procedure Notes None recorded. Medical [...] kg/m2 152.4 cm 72 /min 97.7 [degF] 33789.5 6 g 120 mm[Hg] 62 mm[Hg] Not Available [facility] 3 06:01:15 Date Recorded Body mass index (BMI) Body height Heart rate Body temperature Body weight Systolic blood pressure Diastolic blood pressure Provider Name and Address Organization Details Last Updated DateTime 2 31.1 kg/m2 152.4 cm 90 /min 96.6 [degF] 95902.1 9 g 124 mm[Hg] 70 mm[Hg] Not Available [facility] 3 06:01:15 Date Recorded Body mass index (BMI) Body height Heart rate Body temperature Body weight Systolic blood pressure Diastolic blood pressure Provider Name and Address Organization Details Last Updated DateTime 3 31.2 kg/m2 152.4 cm 81 /min 97.8 [degF] 61485.7 8 g 126 mm[Hg] 78 mm[Hg] Not Available [facility] 3 06:01:15 Date Recorded Body height Body mass index (BMI) Body weight Body temperature Heart rate Systolic blood pressure Diastolic blood pressure Provider Name and Address Organization Details Last Updated DateTime 3 152.4 cm 29.9 kg/m2 50954.6 3 g 97.8 [degF] 97 /min 118 mm[Hg] 80 mm[Hg] Leida Covington MA [facility] [employer] 3 10:28:35 Date Recorded Body height Body weight Body temperature Heart rate Oxygen saturation Oxygen saturation in Arterial blood by Pulse oximetry Systolic blood pressure Diastolic blood pressure Provider Name and Address Organization Details Last Updated DateTime 3 152.4 cm 02249.2 2 g 97.4 [degF] 82 /min 98 % 98 % 118 mm[Hg] 70 mm[Hg] Ashley Nath RN [facility] [employer] 3 10:00:06 Social History Question Answer Notes LastModified by Organization Details LastModified Time Tobacco Smoking Status Former Smoker quit age 29 Not Available [facility] 07/18/2022 05:56:44 Do You Have An Advance Directive? No MIGRATION.0301 [id number] Information not available 07/18/2022 What Is Your Level Of Alcohol Consumption? None MIGRATION.0301 463352 Information not available 07/18/2022 Are You Blind Or Do You Have Difficulty Seeing? No MIGRATION.0301 520633 Information not available 07/18/2022 What Is Your Level Of Caffeine Consumption? Moderate MIGRATION.0301 479331 Information not available 07/18/2022 In The 14 Days Before Symptom Onset, Have You Had Close Contact With A Laboratory-confi rmed COVID-19 While That Case Was Ill? No MIGRATION.0301 241848 Information not available 07/18/2022 In The 14 Days Before Symptom Onset, Have You Had Close Contact With A Person Who Is Under Investigation For COVID-19 While That Person Was Ill? No MIGRATION.0301 055116 Information not available 07/18/2022 Are You Deaf Or Do You Have Serious Difficulty Hearing? No MIGRATION.0301 565507 Information not available 07/18/2022 What Type Of Diet Are You Following? REGULAR MIGRATION.030 879841 Information not available 07/18/2022 What Is The Highest Grade Or Level Of School You Have Completed Or The Highest Degree You Have Received? PI85464-1 MIGRATION.030 705620 Information not available 07/18/2022 What Is Your Occupation? [employer] MIGRATION.030 701403 Information not available 07/18/2022 Have There Been Any Changes To Your Family Or Social Situation? No MIGRATION.0301 412756 Information not available 07/18/2022 What Is The Fluoride Status Of Your Home? Unknown MIGRATION.0301 145093 Information not available 07/18/2022 When Did You Quit Smoking? 17+yearssincelastc igarette MIGRATION.0301 914135 Information not available 07/18/2022 Are There Any Guns Present In Your Home? No MIGRATION.0301 680557 Information not available 07/18/2022 Do You Use Insect Repellent Routinely? No MIGRATION.0301 172296 Information not available 07/18/2022 Where Do You Live? SingleLevelHouse MIGRATION.0301 286234 Information not available 07/18/2022 Do You Have A Medical Power Of Laser Beam Color Scanner Operator? No MIGRATION.0301 707262 Information not available 07/18/2022 What Was The Date Of Your Most Recent Tobacco Screening? 03/04/2023 Information not available 03/04/2023 Do You Have Any Pets? No MIGRATION.0301 371585 Information not available 07/18/2022 What Is Your Relationship Status? MIGRATION.0301 721204 Information not available 07/18/2022 Do You Use Your Seat Belt Or Car Seat Routinely? Yes MIGRATION.0301 438288 Information not available 07/18/2022 Do You Have Smoke And Carbon Monoxide Detectors In Your Home? No MIGRATION.0301 785999 Information not available 07/18/2022 Are You Passively Exposed To Smoke? No MIGRATION.0301 622033 Information not available 07/18/2022 Are There Any Smokers In Your House? No MIGRATION.0301 551236 Information not available 07/18/2022 What Types Of Sporting Activities Do You Participate In? None MIGRATION.0301 792106 Information not available 07/18/2022 Do You Feel Stressed (tense, Restless, Nervous, Or Anxious, Or Unable To Sleep At Night)? [id number] MIGRATION.0301 154858 Information not available 07/18/2022 Do You Use Any Illicit Or Recreational Drugs? No MIGRATION.0301 332502 Information not available 07/18/2022 Do You Use Sunscreen Routinely? Yes MIGRATION.0301 207587 Information not available 07/18/2022 Has Tobacco Cessation Counseling Been Provided? No MIGRATION.0301 196612 Information not available 07/18/2022 Have You Recently Traveled Abroad? No MIGRATION.0301 161940 Information not available 07/18/2022 Do You Have Any Dietary Restrictions? No MIGRATION.0301 423181 Information not available 07/18/2022 Do You Or Have You Ever Used Any Other Forms Of Tobacco Or Nicotine? No MIGRATION.0301 078949 Information not available 07/18/2022 Sex: Female Functional Status Question Answer Note LastModified by Organizat ion Details LastModified Time Do you have difficulty walking or climbing stairs? No MIGRATION.1324784 026 Information not available 07/18/2022 Do you have transportation difficulties? No MIGRATION.7162877 026 Information not available 07/18/2022 Are you able to walk? YESWOREST MIGRATION.9724721 026 Information not available 07/18/2022 Do you have difficulty doing errands alone? No MIGRATION.1082061 026 Information not available 07/18/2022 Are you able to care for yourself? Yes MIGRATION.0195462 026 Information not available 07/18/2022 Do you have difficulty dressing or bathing? No MIGRATION.9012808 026 Information not available 07/18/2022 What is your exercise level? Occasional MIGRATION.1270926 026 Information not available 07/18/2022 Mental Status Question Answer Note LastModified by Organizat ion Details LastModified Time Do you have difficulty concentrating, remembering or making decisions? No MIGRATION.202408925 6 Information not available 07/18/2022 Family History Relationship Description Onset Age of this Age Resolved Age Notes LastModified by Organization Details LastModified Time Mother Rheumatoid arthritis 69 MIGRATION.196 4185423 Not available 07/18/2022 06:00:08 Mother Lupus erythematosu s 69 MIGRATION.939 6381808 Not available 07/18/2022 06:00:08 Father Heart disease 60 MIGRATION.543 3603794 Not available 07/18/2022 06:00:08 Daughter Cholecystect aspen MIGRATION.231 8000262 Not available 07/18/2022 06:00:08 Sister Malignant neoplasm of lung MIGRATION.252 0787444 Not available 07/18/2022 06:00:09 Paternal Uncle Heart disease MIGRATION.931 2736148 Not available 07/18/2022 06:00:09 Medical History Condition Response NERVE DISEASE N BLINDNESS N RHEUMATIC FEVER N KIDNEY STONES N BLADDER PROBLEMS N MRSA N OTHER # 1 Y [...] INSOMNIA N HIGH CHOLESTEROL / HYPERLIPIDEMIA N HYPERTHYROIDISM N EYE PROBLEMS N EDEMA N CHRONIC PAIN SYNDROME N HYPOTHYROIDISM N CONSTIPATION N CAROTID BLOCKAGE N BACK / NECK PROBLEMS N ATHEROSCLEROSIS N BREAST PROBLEMS N DIALYSIS N ECZEMA N OSTEOPOROSIS N ARTHRITIS Y APPENDICITIS N DIABETES, TYPE N BAD TEETH N ENT N HEARTBURN / REFLUX N AUTISM SPECTRUM DISORDER (ASD) N HEPATITIS / LIVER DISEASE N GOUT N SLEEP DISORDER N ALZHEIMER'S DISEASE N Brain Problems N HERPES N DEMENTIA N SEIZURES/EPILEPSY N HEADACHES/MIGRAINES N VASCULAR DISEASE N PACEMAKER N Blood Disorder N DIZZINESS Y KIDNEY DISEASE N HEART DISEASE/HEART PROBLEMS N MULTIPLE SCLEROSIS N CARDIAC ARRHYTHMIA N CANCER: SPECIFY N Gall Stones N ATRIAL FIBRILLATION N PULMONARY EMBOLISM N AUTOIMMUNE DISEASE N Gynecological HistoryNo gynecological history recorded. Obstetrics History GPAL:G 1 P 1 0 0 0 Type Value Full Term 1 Total 1 Immunizations Vaccine Type Date Status Note Provider Nam e and Address Organization Details Recorded Time Influenza, high-dose, quadrivalent, PF 9 completed Not Available [facility] 03/11/2023 11:43:56 COVID-19, mRNA, LNP-S, PF, 30 mcg/0.3 mL dose 1 completed Not Available [facility] 03/11/2023 11:43:57 Influenza, high-dose, quadrivalent, PF 1 completed Not Available [facility] 03/11/2023 11:43:56 COVID-19, mRNA, LNP-S, PF, 30 mcg/0.3 mL dose 1 completed Not Available [facility] 03/11/2023 11:43:56 COVID-19, mRNA, LNP-S, PF, 30 mcg/0.3 mL dose 1 completed Not Available [facility] 03/11/2023 11:43:56 Influenza, split virus, quadrivalent, preservative 0 completed [facility] Available [facility] 03/11/2023 11:43:56 pneumococcal polysaccharide PPV23 2 completed Not Available [facility] 03/11/2023 11:43:57 Pneumococcal conjugate PCV 13 1 completed Not Available [facility] 03/11/2023 11:43:57 Past Encounters Encounter ID Performer Location Encounter Start Date Encounter Closed Date Diagnosis/Indication Diagnosis SNOMED-CT Code Diagnosis ICD10 Code Diagnosis Note [id number] [facility] [address] [place] [address] [place] [address] 01/25/2021 00:00:00 01/25/2021 21:32:58 [id number] [facility] [address] [place] [address] [place] [address] 05/24/2021 00:00:00 06/17/2021 14:43:10 [id number] [facility] [address] [place], [place] [address]e., [address] [address] 08/23/2021 00:00:00 09/02/2021 21:59:08 [id number] [facility] [address] [address] 09/20/2021 00:00:00 10/08/2021 19:53:22 [id number] [facility] [address] [address] 01/05/2022 00:00:00 01/28/2022 14:00:03 [id number] [facility] [address] [address] 07/06/2022 00:00:00 07/06/2022 23:20:44 [id number] Ant Regalado MD [facility] [address] [place] [address] [place] [address] 11/16/2022 10:04:06 11/16/2022 11:59:44 Hyperlipidemia 53767056 E78.5 Gastroesop hageal reflux disease without esophagitis 044079741 K21.9 [id number] Ant Regalado MD [facility] [address] [place] [address] [address] [place] [address] 03/04/2023 09:45:42 03/04/2023 10:30:06 Neck pain 59302140 M54.2 Anxiety 19556766 F41.9 Gastroesop hageal reflux disease without esophagitis 649728135 K21.9 Hyperlipidemia 21969441 E78.5 Rheumatoid arthritis 698 60511 M06.9 Health Concerns Section Related Observation LastModified by Organization Detai ls LastModified Time None Recorded Concern Status LastModified by Organization Details LastModified Time None Recorded Advance Directives Directive N: Payers Encounter Date Sequence Insurance Name Policy Number Policy Romeo Covered Member ID Romeo Member ID Guarantor Name 11/16/2022 1 [facility] (MEDICARE REPLACEMENT/A DVANTAGE - HMO) [id number] Daisy Joseph [id number] Daisy Joseph 03/04/2023 1 [facility] (MEDICARE REPLACEMENT/A DVANTAGE - HMO) [id number] Daisy Joseph [id number] Daisy Joseph Notes Date Note Type Note Provider Name and Address Organization Details Recorded Time 11/16/2022 text/html Upper lower endo scopy CT scan as an adrenal lesion needs further characterization Ant Regalado MD [address], [address], [place], [address], [facility] 11/17/2022 21:53:29 03/04/2023 text/html I need the upper endo report she had some polyps are: Little bit nondescript neck pain which he turns it to the left adrenal lesion seen with no significant change on her CT scan Ant Regalado MD [address], [address], [place], [address], [facility] 03/04/2023 14:09:02 OBGyn Episode No OBEpisode recorded.
--- OUTSIDE RECORDS SUMMARY | 2024-09-15 11:24 | XMS_ITS | CONTINUITY OF CARE DOCUMENT ---
Author Name zenonemelina, zenondaniikolton Address Unknown Organization [facility] Address [address] [place] [address] Phone [phone] Care Team Providers Care Panel Coverer Name Role Phone Mike CASTRO, Eli Unavailable [phone] MOUNIKA AVILA MD Unavailable [phone] PROBLEMS Condition Status Date Provider Notes Dyspnea on exertion active Josiah Bueno Palpitations active Ricki Arceo INSURANCE PROVIDERS Payer name Policy type / Coverage type [place] [employer] ID AARP MEDICARE ADVANTAGE HMO-POS HMO [id number] TREATMENT PLAN Date Name Stress Regadenoson Complete Echo HISTORY OF PROCEDURES Procedure Date Procedure Name Provider Procedure Notes S tatus FVC / MVV - 28525 Eli Mckeon MD co mpleted BLOOD COUNT HEMOGLOBIN Eli Mckeon MD completed FRC - 65999 Eli Mckeon MD complete d SpO2 w/o 6min walk/titration Eli Mckeon MD completed DLCO - 64566 Eli Mckeon MD complet ed Event Monitor Eli joseph
--- OUTSIDE RECORDS SUMMARY | 2024-09-15 11:24 | XMS_ITS | Data Portability ---
Author Organization [facility] Javy Nance Address [address] [place] [address] Care Team Providers Care Library Circulation Technician Name Role Phone MOUNIKA REGALADO Primary Care Provider RAFAELA Barnes Epic Beacon Analyst Assessment Encounter Date Assessment Date Assessment LastModified by Organization Details LastModified Time 07/30/2023 07/30/2023 Chest x-ray echocardiogram PFT Lexiscan Cardiolite. Blood work for biochemical management of disease processes and medications continue with her medications as ordered follow-up 4 months [place] [id number] Not available 08/03/2023 21:51:55 11/26/2023 11/26/2023 Z-Gilberto for URI other medications we will continue workup for dyspnea so far negative and she is improved actually back to baseline and does not want to pursue anything else she will let me know if things change follow up with me in 4 months Not available 11/26/2023 21:00:07 01/08/2024 01/08/2024 screenings checklist immunizations discussed ordered where appropriate for the patient and patient agreeable all questions answered she will follow up with me at her regularly scheduled visit [email or web address] Not available 01/19/2024 14:31:35 03/31/2024 03/31/2024 blood work has been ordered healthy lifestyle care instructions for obesity continue current therapy her diagnosis discussed all questions have been answered she will follow up with me in 4 months she states that mammogram colonoscopy is up-to-date we will have to try to retrieve the report [email or web address] Not available 04/04/2024 22:54:38 06/23/2024 06/23/2024 obtain chest x-ray healthy lifestyle care instructions to help shed a few lb may otherwise continue current therapy and follow up in 4 months [email or web address] Not available 06/28/2024 20:28:57 Plan of Treatment Reminders Order Date Submit Date Provider Last Modified By Organization Details Last Modified Time Details Appointments ANY 15 2024 09:30A Jana Regalado MD Not available Not available Not available Lab CBC w/ auto diff 2023 024 [facility], [address], [place], [address], 06/10/2024 17:58:47 CMP, serum or plasma 2023 024 [facility], [address], [place], [address], 06/10/2024 17:58:45 lipid panel, serum 2023 024 [facility], [address], [address], [place], [address], 06/10/2024 17:58:44 lipid panel, serum 2023 024 [facility], [address], [address], [place], [address], 08/14/2023 16:14:39 CMP, serum or plasma 2023 024 [facility], [address], [place], [address], 08/14/2023 16:14:38 CBC w/ auto diff 2023 024 [facility], [address], [place], [address], 08/14/2023 16:14:38 Referral None recorded. Procedures lexiscan cardiolit e stress test (PROC) 2023 024 [facility], [address], [address], [place], [address], 08/05/2023 14:11:35 Surgeries None recorded. Imaging XR, chest 2024 025 [facility] (Imaging), [address] [facility] [address], [address], 08/19/2024 17:49:29 MAMMO, screening , bilateral 2023 024 [facility] ([facility]), [address] [place], [address], 02/27/2024 10:17:44 bone density 2023 024 [facility] ([facility]), [address] [place], [address], 02/27/2024 10:24:29 XR, chest, 2 view 2023 024 [facility] ([facility]), [address] [place], [address], 08/14/2023 15:42:04 US, echocardi ogram 2023 024 [facility], [address] [facility] [address] [facility], [facility] [address], [place], [address], 08/21/2023 11:57:07 PFT, complete 2023 024 [facility], [address], [facility] [address], [place], [address], 08/28/2023 10:36:47 Medication Orders Zithromax Z-Gilberto 250 mg tablet 2023 024 [id number], [address] , [place], [place], [id number], 01/08/2024 10:19:38 Patient TargetsNo targets recorded. Patient Instructions Encounter Date Encounter Id Patient Instructions Last Modified By Organization Details Last Modified Time 01/08/2024 [id number] Medicare Well[employer] [facility] Preventive Checklist [email or web address] Not available 01/08/2024 11:02:46 03/31/2024 [id number] A healthy lifestyle: care instructions [email or web address] Not available 03/31/2024 13:15:47 06/23/2024 [id number] A healthy lifestyle: care instructions [email or web address] Not available 06/23/2024 15:22:33 Reason for Referral None Reported. Results Created Date Observation Date Name Description Value Unit Range Abnormal Flag Note LastModifiedBy Organization Detail LastModifiedTime 06/10/19 25 06/10/2024 LIPID PANEL , [place] cholesterol, total 127 mg/dL <200 normal Not Available [address], [address], 06/10/2024 17:58:44 06/10/19 25 06/10/2024 LIPID PANEL , [place] HDL cholesterol 51 mg/dL > or = 50 normal Not Available [address], [address], 06/10/2024 17:58:44 06/10/19 25 06/10/2024 LIPID PANEL , [place] triglyceride s 107 mg/dL <150 normal Not Available [address], [address], 06/10/2024 17:58:44 06/10/19 25 06/10/2024 LIPID PANEL [...] 2061- 2068 (http ://ed ucati on.Logan garcia ChartsNow (now MusicQubed). com/f aq/FA Q164) Not Available [address], [address], 06/10/2024 17:58:44 06/10/19 25 06/10/2024 LIPID PANEL , [place] chol/HDLC ratio 2.5 (calc ) <5.0 normal Not Available [address], [address], 06/10/2024 17:58:44 06/10/19 25 06/10/2024 LIPID PANEL , [place] non HDL cholesterol 76 mg/dL _(stephanie c) <130 normal For patie nts with diabe seema plus 1 major ASCVD risk facto r, treat ing to a non-H DL-C goal of <100 mg/dL (LDL- C of <70 mg/dL ) is consi larond a thera peaishai c optio n. Not Available [address], [address], 06/10/2024 17:58:44 06/10/19 25 06/10/2024 COMPR EHENS MARK METAB OLIC PANEL glucose 145 mg/dL 65-139 high Non-f astin g refer ence inter josefa Not Available [address], [address], 06/10/2024 17:58:45 06/10/19 25 06/10/2024 COMPR EHENS MARK METAB OLIC PANEL urea nitrogen (BUN) 10 mg/dL 7-25 normal Not Available [address], [address], 06/10/2024 17:58:45 06/10/19 25 06/10/2024 COMPR EHENS MARK METAB OLIC PANEL creatinine 0.80 mg/dL 0.60-1 .00 normal Not Available [address], [address], 06/10/2024 17:58:45 06/10/19 25 06/10/2024 COMPR EHENS MARK METAB OLIC PANEL eGFR 78 mL/mi n/1.7 3m2 > or = 60 normal Not Available [address], [place], [address], 06/10/2024 17:58:45 06/10/19 25 06/10/2024 COMPR EHENS MARK METAB OLIC PANEL BUN/creatini ne ratio SEE NOTE: (calc ) 6-22 Not Repor jake: BUN and Creat inine are withi n refer ence range . Not Available [address], [place], [address], 06/10/2024 17:58:45 06/10/19 25 06/10/2024 COMPR EHENS MARK METAB OLIC PANEL sodium 136 mmol/ L 135-14 6 normal Not Available [address], [place], [address], 06/10/2024 17:58:45 06/10/19 25 06/10/2024 COMPR EHENS MARK METAB OLIC PANEL potassium 4.4 mmol/ L 3.5-5. 3 normal Not Available [address], [place], [address], 06/10/2024 17:58:45 06/10/19 25 06/10/2024 COMPR EHENS MARK METAB OLIC PANEL chloride 103 mmol/ L 98-110 normal Not Available [address], [address], 06/10/2024 17:58:45 06/10/19 25 06/10/2024 COMPR EHENS MARK METAB OLIC PANEL carbon dioxide 26 mmol/ L 20-32 normal Not Available [address], [address], 06/10/2024 17:58:45 06/10/19 25 06/10/2024 COMPR EHENS MARK METAB OLIC PANEL calcium 10.0 mg/dL 8.6-10 .4 normal Not Available [address], [address], 06/10/2024 17:58:45 06/10/19 25 06/10/2024 COMPR EHENS MARK METAB OLIC PANEL protein, total 6.8 g/dL 6.1-8. 1 normal Not Available [address], [address], 06/10/2024 17:58:45 06/10/19 25 06/10/2024 COMPR EHENS MARK METAB OLIC PANEL albumin 4.5 g/dL 3.6-5. 1 normal Not Available [address], [address], 06/10/2024 17:58:45 06/10/19 25 06/10/2024 COMPR EHENS MARK METAB OLIC PANEL globulin 2.3 g/dL_ (calc ) 1.9-3. 7 normal Not Available [address], [address], 06/10/2024 17:58:45 06/10/19 25 06/10/2024 COMPR EHENS MARK METAB OLIC PANEL albumin/glob ulin ratio 2.0 (calc ) 1.0-2. 5 normal Not Available [address], [address], 06/10/2024 17:58:45 06/10/19 25 06/10/2024 COMPR EHENS MRAK METAB OLIC PANEL bilirubin, total 0.5 mg/dL 0.2-1. 2 normal Not Available [address], [address], 06/10/2024 17:58:45 06/10/19 25 06/10/2024 COMPR EHENS MARK METAB OLIC PANEL alkaline phosphatase 61 U/L 37-153 normal Not Available [place] [address] [place], [address], 06/10/2024 17:58:45 06/10/19 25 06/10/2024 COMPR EHENS MARK METAB OLIC PANEL AST 24 U/L 10-35 normal Not Available [address], [address], 06/10/2024 17:58:45 06/10/19 25 06/10/2024 COMPR EHENS MARK METAB OLIC PANEL ALT 20 U/L 6-29 normal Not Available [address], [address], 06/10/2024 17:58:45 06/10/19 25 06/10/2024 CBC (INCL UDES DIFF/ PLT) white blood cell count 6.2 thous and/u L 3.8-10 .8 normal Not Available [address], [address], 06/10/2024 17:58:47 06/10/19 25 06/10/2024 CBC (INCL UDES DIFF/ PLT) red blood cell count 4.72 braeden on/uL 3.80-5 .10 normal Not Available [address], [address], 06/10/2024 17:58:47 06/10/19 25 06/10/2024 CBC (INCL UDES DIFF/ PLT) hemoglobin 14.1 g/dL 11.7-1 5.5 normal Not Available [address], [address], 06/10/2024 17:58:47 06/10/19 25 06/10/2024 CBC (INCL UDES DIFF/ PLT) hematocrit 44.0 % 35.0-4 5.0 normal Not Available [address], [address], 06/10/2024 17:58:47 06/10/19 25 06/10/2024 CBC (INCL UDES DIFF/ PLT) MCV 93.2 fL 80.0-1 00.0 normal Not Available [address], [address], 06/10/2024 17:58:47 06/10/19 25 06/10/2024 CBC (INCL UDES DIFF/ PLT) MCH 29.9 pg 27.0-3 3.0 normal Not Available [address], [address], 06/10/2024 17:58:47 06/10/19 25 06/10/2024 CBC (INCL [...] nt's clini stephanie condi tion. Not Available [address], [address], 06/10/2024 17:58:47 06/10/1906/10/2024 CBC (INCL UDES DIFF/ PLT) RDW 11.9 % 11.0-1 5.0 normal Not Available [address], [address], 06/10/2024 17:58:47 06/10/19 25 06/10/2024 CBC (INCL UDES DIFF/ PLT) platelet count 219 thous and/u L 140-40 0 normal Not Available [address], [address], 06/10/2024 17:58:47 06/10/19 25 06/10/2024 CBC (INCL UDES DIFF/ PLT) MPV 10.7 fL 7.5-12 .5 normal Not Available [address], [address], 06/10/2024 17:58:47 06/10/19 25 06/10/2024 CBC (INCL UDES DIFF/ PLT) absolute neutrophils 4061 cells /uL 1500-7 800 normal Not Available [address], [address], 06/10/2024 17:58:47 06/10/19 25 06/10/2024 CBC (INCL UDES DIFF/ PLT) absolute lymphocytes 1432 cells /uL 850-39 00 normal Not Available [address], [address], 06/10/2024 17:58:47 06/10/19 25 06/10/2024 CBC (INCL UDES DIFF/ PLT) absolute monocytes 546 cells /uL 200-95 0 normal Not Available [address], [address], 06/10/2024 17:58:47 06/10/19 25 06/10/2024 CBC (INCL UDES DIFF/ PLT) absolute eosinophils 112 cells /uL 15-500 normal Not Available [address], [address], 06/10/2024 17:58:47 06/10/19 25 06/10/2024 CBC (INCL UDES DIFF/ PLT) absolute basophils 50 cells /uL 0-200 normal Not Available [address], [address], 06/10/2024 17:58:47 06/10/19 25 06/10/2024 CBC (INCL UDES DIFF/ PLT) neutrophils 65.5 % normal Not Available [address], [address], 06/10/2024 17:58:47 06/10/19 25 06/10/2024 CBC (INCL UDES DIFF/ PLT) lymphocytes 23.1 % normal Not Available [address], [address], 06/10/2024 17:58:47 06/10/19 25 06/10/2024 CBC (INCL UDES DIFF/ PLT) monocytes 8.8 % normal Not Available [facility] [address], [address], 06/10/2024 17:58:47 06/10/19 25 06/10/2024 CBC (INCL UDES DIFF/ PLT) eosinophils 1.8 % normal Not Available [facility] [address], [address], 06/10/2024 17:58:47 06/10/19 25 06/10/2024 CBC (INCL UDES DIFF/ PLT) basophils 0.8 % normal Not Available [facility] [address], [address], 06/10/2024 17:58:47 06/16/1906/16/2024 HEMOG LOBIN A1C hemoglobin [...] for child kamlesh. Not Available [facility] [address], [place], [address], 06/16/2024 22:54:08 08/14/19 24 08/14/2023 XR, chest , 2 view No observ ation record ed. [email or web address] [facility] [address] [place], [address], 08/21/2023 09:21:17 08/21/19 24 08/20/2023 US, echo ardio gram No observ ation record ed. [facility] [address], [place], [address], 08/26/2023 16:44:05 08/28/19 24 08/28/2023 PFT, compl ete No observ ation record ed. [facility] [address], [place], [address], 09/04/2023 13:22:12 09/23/19 24 09/23/2023 NM, myoca rdial perfu eva scan No observ ation record ed. [facility] [address], [place], [address], 09/27/2023 15:38:28 01/08/20 24 06/23/2021 colon oscop y proce dure (PROC ) No observ ation record ed. Not Available 2023 10:58:43 02/27/2002/27/2024 MAMMO , scree delilah, bilat eral No observ ation record ed. [facility] [address] [place], [address], 03/11/2024 13:04:48 02/27/20 24 02/27/2024 bone densi ty No observ ation record ed. [facility] [address] [place], [address], 03/11/2024 13:04:49 08/15/19 25 08/14/2024 XR, chest No observ ation record ed. [facility] (Imaging) [address], [place], [address], 08/19/2024 17:49:29 Result Notes None recorded. Problems Name Problem SNOMED Code Status Onset Date Resolution Date Notes Provider Name and Address Organization Details Recorded Time Dyspnea on exertion 08494317 Active 2023 Dallas Figueroa MA null, [place] - [facility] 4 14:12:33 Urinary tract infectious disease 95560753 Active 2023 [place] Figuero[place], [place] [facility] 4 11:42:53 Obesity 665081220 Active 2023 [place] Figuero[place], [place] [facility] 4 11:42:53 Rheumatoid arthritis 74887038 Active 2023 [place] Figuero[place] [facility] 4 11:42:57 Gastroesophage al reflux disease without esophagitis 576556880 Active 2023 [place] Figuero[place] [facility] 4 11:42:58 Anxiety 72819790 Active 2023 [place] Figuero[place] [facility] 4 11:43:00 Hyperlipidemia 10504116 Active 2023 [place] Figuero[place], [place] [facility] 4 11:43:09 Problem Notes None recorded. Procedures Surgical History Date Name Laterality Status Provider Name and Address Organization Details Recorded Time Knee Surgery completed HEIKE Foster - [facility] 07/30/2023 11:25:01 Tonsillectomy completed HEIKE Foster - [facility] 07/30/2023 11:25:10 partial hysterectomy completed HEIKE Foster - [facility] 07/30/2023 11:25:28 Imaging Results Imaging Date Name Status LastModified by Organization Details LastModified Time 08/14/2023 XR, chest, 2 view completed [address], [address], 08/21/2023 09:21:17 08/20/2023 US, echocardiogram completed [facility] [address], [place], [address], 08/26/2023 16:44:05 08/28/2023 PFT, complete completed [facility] [address], [place], [address], 09/04/2023 13:22:12 09/23/2023 NM, myocardial perfusion scan completed [facility] [address], [place], [address], 09/27/2023 15:38:28 06/23/2021 colonoscopy procedure (PROC) completed [facility] Information not available 01/08/2024 10:58:43 02/27/2024 MAMMO, screening, bilateral completed [facility] [address] [place], [address], 03/11/2024 13:04:48 02/27/2024 bone density completed [facility] [address] [place], [address], 03/11/2024 13:04:49 08/14/2024 XR, chest completed [facility] ([facility]) [address], [place], [address], 08/19/2024 17:49:29 Procedure Notes None recorded. Medical Equipment None [...] Address Organization Details Last Updated DateTime 4 [address].6 7 g 28.9 kg/m2 152.4 cm 80 /min 99 % 99 % 111 mm[Hg] 72 mm[Hg] Madeline Bueno MA [place] - [facility] 4 11:28:16 Date Recorded Body height Body mass index (BMI) Body weight Heart rate Oxygen saturation Oxygen saturation in Arterial blood by Pulse oximetry Systolic blood pressure Diastolic blood pressure Provider Name and Address Organization Details Last Updated DateTime 4 152.4 cm 29.1 kg/m2 80409.2 6 g 81 /min 99 % 99 % 128 mm[Hg] 62 mm[Hg] Candice Ramos MA [place] - [facility] 4 10:37:28 Date Recorded Body height Body mass index (BMI) Body weight Heart rate Oxygen saturation Oxygen saturation in Arterial blood by Pulse oximetry Systolic blood pressure Diastolic blood pressure Provider Name and Address Organization Details Last Updated DateTime 4 152.4 cm 29.8 kg/m2 11816.9 1 g 79 /min 97 % 97 % 124 mm[Hg] 70 mm[Hg] Madeline Bueno MA [facility] 4 10:13:37 Date Recorded Pain severity - 0-10 verbal numeric rating [Score] - Reported Provider Name and Address Organization Details Last Updated DateTime 01/08/2024 0 Alesha Rogers [facility] 01/08/2024 10:18:37 Date Recorded Body height Body mass index (BMI) Body weight Heart rate Oxygen saturation Oxygen saturation in Arterial blood by Pulse oximetry Systolic blood pressure Diastolic blood pressure Provider Name and Address Organization Details Last Updated DateTime 4 149.86 cm 31.6 kg/m2 18693.2 1 g 86 /min 99 % 99 % 128 mm[Hg] 78 mm[Hg] Rachel Muhammad MA [facility] 4 10:22:14 Date Recorded Body height Body mass index (BMI) Body weight Heart rate Oxygen saturation Oxygen saturation in Arterial blood by Pulse oximetry Systolic blood pressure Diastolic blood pressure Provider Name and Address Organization Details Last Updated DateTime 5 149.86 cm 30.7 kg/m2 81402.0 4 g 77 /min 97 % 97 % 104 mm[Hg] 68 mm[Hg] June Rivas MA [facility] 5 10:25:47 Social History Question Answer Notes LastModified by Organizat ion Details LastModified Time Tobacco Smoking Status Former Smoker Quit about 30 years ago - didn't smoke regularly, only when nervous Alesha Farrah [facility] 01/08/2024 10:24:02 Do You Have An [...] Or The Highest Degree You Have Received? UP21305-9 Information not available 01/08/2024 Are There Any Guns Present In Your Home? No Information not available 07/30/2023 In The Past 7 Days, How Much Pain Have You [place]? None Information not available 01/08/2024 In General, [...] Past 7 Days, How Often Have You [place] Sleepy In The Daytime? Always Information not [...] Anxious, Or Unable To Sleep At Night)? [id number] Information not available 01/08/2024 Do You Use [...] High Blood Pressure N Atrial Fibrillation N Kidney or Bladder Problems N Thyroid Problems N GI Problems N Depression N COPD N Blood Clots N Have you had a mammogram in the last yea r? N Skin Problems N Anemia N Heart Attack (HI) N Anxiety Disorder N Diabetes N Muscle, Joint, or Bone Problems N Seizures/Epilepsy N Have you had a colonoscopy in the last 1 0 years? Y Acid Reflux (GERD) Y Cancer N Stroke N Asthma N Allergies N Have you had a PSA blood test in the las t year? N High Cholesterol Y Hepatitis N Liver Disease N Headaches N Heart Failure N Osteoporosis N Gynecological History Statement/Question Response If Post Menopausal, Age at Menopause 53 Obstetrics History GPAL:G 1 P 1 0 0 1 Type Value Full Term 1 Living 1 Total 1 Immunizations Vaccine Type Date Status Note Provider Nam kervin and Address Organization Details Recorded Time Influenza, high-dose, quadrivalent, PF 3 completed Alesha Yan null, [place] [facility] 01/08/2024 10:12:24 Influenza, high-dose, quadrivalent, PF 9 completed [place]les[place] [facility] 01/08/2024 10:12:24 Influenza, adjuvanted, quadrivalent, PF 2 completed [place] [facility] 01/08/2024 10:12:24 Influenza, adjuvanted, quadrivalent, PF 1 completed [place] [facility] 01/08/2024 10:12:24 COVID-19, mRNA, LNP-S, PF, 30 mcg/0.3 mL dose 1 completed [place] [facility] 01/08/2024 10:12:24 COVID-19, mRNA, LNP-S, PF, 30 mcg/0.3 mL dose 1 completed [place] [facility] 01/08/2024 10:12:24 COVID-19, mRNA, LNP-S, PF, 30 mcg/0.3 mL dose 1 completed [place] [facility] 01/08/2024 10:12:24 pneumococcal polysaccharide PPV23 2 completed [place] [facility] 01/08/2024 10:12:24 Pneumococcal conjugate PCV 13 1 completed [place] [facility] 01/08/2024 10:12:24 Influenza, split virus, quadrivalent, PF 0 completed [place] [facility] 01/08/2024 10:12:24 Past Encounters Encounter ID Performer Location Encounter Start Date Encounter Closed Date Diagnosis/Indication Diagnosis SNOMED-CT Code Diagnosis ICD10 Code Diagnosis Note [id number] Mounika Regalado MD [facility] (Adult Med) [address] [place] [phone] 07/30/2023 11:02:13 07/30/2023 12:08:40 Dyspnea on exertion 31945250 R06.09 Hyperlipidemia 65862939 E78.5 Rheumatoid arthritis 698 [address] M06.9 Anxiety 91969787 F41.9 Gastroesop hageal reflux disease without esophagitis 608640484 K21.9 Chronic low back pain 27 8818008 M54.50 [id number] Mounika Regalado MD [facility] (Adult Med) [address] [place] [phone] 11/26/2023 10:16:39 11/26/2023 11:43:52 Urinary tract infectious disease 01768747 N39.0 Hyperlipidemia 00753841 E78.5 Rheumatoid arthritis 698 28793 M06.9 Gastroesop hageal reflux disease without esophagitis 581180915 K21.9 Anxiety 59976919 F41.9 [id number] Mounika Regalado MD [facility] (Adult Med) [address] [place] [phone] 01/08/2024 10:01:49 01/08/2024 10:51:40 Adult health examination 634364585 Z00.00 Health Risk Assessment collected and reviewed Screening mammography 24 377130 Z12.31 Postmenopausal state 764 56728 Z78.0 [id number] Mounika Regalado MD [facility] (Adult Med) [address] [place] [phone] 03/31/2024 10:14:54 03/31/2024 11:44:28 Body mass index 30+ - obesity 061877325 Z68.31 BMI 31.6 Obesity 885538159 E66.9 Hyperlipidemia 33164799 E78.5 Rheumatoid arthritis 698 34392 M06.9 Gastroesop hageal reflux disease without esophagitis 479015433 K21.9 Long-term drug therapy 978679066 Z79.891 Anxiety 64882405 F41.9 [id number] Mounika Regalado MD [facility] (Adult Med) [address] [place] [phone] 06/23/2024 10:08:52 06/23/2024 10:56:00 Body mass index 30+ - obesity 797738893 Z68.31 BMI 31.6 Obesity 192657988 E66.9 Cough 50286475 R05.9 Hyperlipidemia 92895561 E78.5 Gastroesop hageal reflux disease without esophagitis 757322682 K21.9 Rheumatoid arthritis 698 18410 M06.9 Anxiety 11072439 F41.9 Health Concerns Section Related Observation LastModified by Organization Detai ls LastModified Time None Recorded Concern Status LastModified by Organization Details LastModified Time None Recorded Advance Directives Directive Y: Payers Encounter Date Sequence Insurance Name Policy Number Policy Romeo Covered Member ID Romeo Member ID Guarantor Name 07/30/2023 1 [facility] (MEDICARE REPLACEMENT/A DVANTAGE - HMO) [id number] Daisy F Brummitt [id number] Daisy Brummitt 11/26/2023 1 [facility] (MEDICARE REPLACEMENT/A DVANTAGE - HMO) [id number] Daisy F Brummitt [id number] Daisy Brummitt 01/08/2024 1 [facility] (MEDICARE REPLACEMENT/A DVANTAGE - HMO) [id number] Daisy F Brummitt [id number] Daisy Brummitt 03/31/2024 1 [facility] (MEDICARE REPLACEMENT/A DVANTAGE - HMO) [id number] Daisy F Brummitt [id number] Daisy Brummitt 06/23/2024 1 [facility] (MEDICARE REPLACEMENT/A DVANTAGE - HMO) [id number] Daisy F Brummitt [id number] Daisy Brummitt Notes Date Note Type Note Provider Name [...] stable Mounika Regalado MD Attn: Accounting[address] [place], [address], [place] [facility] 08/03/2023 21:52:14 11/26/2023 text/html for follow up [...] Mounika Regalado MD Attn: [address]ing[address] [place], [address], [facility] 11/26/2023 21:00:25 01/08/2024 text/html MAW 2Reported bypatient.Diet [...] home Mounika Regalado MD Attn: [address] [place], [address], [facility] 01/19/2024 14:31:48 03/31/2024 text/html GERD no nausea n o vomiting anxiety doing fine on current medical regimen without any side effects rheumatoid arthritis stable she is not having any side effects from medication GERD she is managing that conservatively Mounika Regalado MD Attn: Accounting,[address] [place], [address], [facility] 04/04/2024 22:54:58 06/23/2024 text/html rheumatoid arthr itis seems to be doing fine GERD no nausea or vomiting anxiety has been stable she has had no problems trying to follow low-fat diets had a cough for about 6 weeks that has been nonproductive without fever chills has been no hemoptysis or chest pain Mounika Regalado MD Attn: [address] [place], [address], [facility] 06/28/2024 20:29:18 OBGyn Episode No OBEpisode recorded.
--- OUTSIDE RECORDS SUMMARY | 2024-09-15 11:24 | XMS_ITS | Encounter Summary ---
Author Organization [facility] Health Address [address] [facility] [place] [address] Care Team Providers Care Clinical Quality Assurance Specialist Name Role Phone Ruben Meredith MD Primary Care Provider [phone] Encounter Details Date Type Department Care Team (Late st Contact Info) Description 09/15/2012 [facility] Carlos Rincon MD [address] [place] [id number] Social History Tobacco Use Types Packs/Day Years Used Date Smoking Tobacco: Former Cigarettes Alcohol Use Standard Drinks/Week Comments No 0 (1 standard drink = 0.6 oz pur e alcohol) Comments No Sex and Gender Information Value Date Recorded Sex Assigned at Not on file Legal Sex Female 4:32 AM [employer] Gender Identity Not on file Sexual Orientation Not on file documented as of this encounter Plan of Treatment Not on file documented as of this encounter Visit Diagnoses Not on filedocumented in this encounter Care Teams Clinical Quality Assurance Specialist Relationship Specialty Start Date End Date Ruben Meredith MD PCP - General 03/13/09 documented as of this encounter
== END 2024-09-15 10:11 | disposition home or self-care (01) ==
PROVIDERS: PCP Internal Medicine; Visit Provider Internal Medicine
DX: R91.8 Other nonspecific abnormal finding of lung field (principal); D35.00 Benign neoplasm of unspecified adrenal gland; R05.3 Chronic cough
CPT/HCPCS: 71250

== ENCOUNTER 2024-10-16 15:11 | Outpatient (CLI) | payer MEDICARE, SELFPAY ==
--- NOTE | ~2024-10-16 | MR_ITS ---
MRI of the abdomen: Clinical indication: Adrenal lesion. Technique: Coronal SSFSE ARC, WATER:coronal LAVA-FLEX, Coronal 2D FIESTA FatSat, Axial SSFSE BH ARC, Axial 3D DualEcho BH, Axial SSFSE-IR, Axial DWI b=500, Axial 2D FIESTA FatSat, pre and dynamic postco ntrast Axial LAVA ARC, postcontrast Coronal In and Opposed phase LAVA FLEX. Findings: Gallbladder absent. The common bile duct is normal in course and caliber. No filling defect s are seen within the CBD. No evidence of intrahepatic biliary ductal dilatation. The pancreatic duct is normal in size. Liver, spleen, pancreas, left adrenal gland, kidneys appear normal. 3.1 cm right adrenal lesion demon strates diffuse signal loss on out of phase images relative to in phase images, compatible with benig n adenoma. The aorta and the paraaortic regions appear normal. Impression: 3.1 cm right adrenal adenoma. Reviewed, dictated and finalized at [facility]. Impression: 3.1 cm right adrenal adenoma.
== END 2024-10-16 15:12 | disposition home or self-care (01) ==
PROVIDERS: PCP Internal Medicine; Visit Provider Internal Medicine
DX: D35.01 Benign neoplasm of right adrenal gland (principal)
CPT/HCPCS: 74181